=== PATIENT | male | born 1950 | race Hispanic/Latino ===

== ENCOUNTER → 2018-01-27 | Day surgery (SDC) | payer MEDICARE ==
[2018-01-23 11:44] LABS: BASOPHILS # (AUTO) 0.1 (0.0-0.1); BASOPHILS % 1.1 % (0.0-1.0); EOSINOPHILS # (AUTO) 0.1 (0.0-0.4); EOSINOPHILS % 2.3 % (0.0-6.0); HEMOGLOBIN 13.6 g/dL (14.0-18.0); LYMPHOCYTES # (AUTO) 1.1 (1.0-3.2); LYMPHOCYTES % 19.6 % (18.0-39.1); MEAN CORPUSCULAR HEMOGLOBIN 41.5 pg (28-32); MEAN CORPUSCULAR HGB CONC 36.8 g/dL (31-35); MEAN CORPUSCULAR VOLUME 112.8 fL (81-99); MONOCYTES # (AUTO) 0.6 (0.2-0.8); MONOCYTES % 9.6 % (4.4-11.3); NEUTROPHILS # (AUTO) 3.8 (2.1-6.9); PLATELET COUNT 321 x10e3/uL (140-360); RED BLOOD COUNT 3.28 x10e6/uL (4.3-5.7); RED CELL DISTRIBUTION WIDTH 16.6 % (11.7-14.4)
[~2018-01-27] MED LIST: AMLODIPINE BESY10 MG PO; HYDROXYUREA500 MG PO; LISINOPRIL-HCT1 EAC1 PO; MIDAZOLAM HCL 2 MG/2 ML VIAL ONE; PROPOFOL IV EMULSION 10 MG/ML 50 ML VIAL ONE; TAMSULOSIN HCL0.4 MG PO
--- OUTSIDE RECORDS SUMMARY | 2018-01-27 14:44 | XMS REPORT | Clinical Summary ---
Author Author [facility] Address Unknown Phone Unavailable Care Team Providers Care Panel Raiser Operator Name Role Phone Cali Rodriguez MD PCP Allergies No Known Allergies Current Medications Prescription Sig. Disp. Refills Start End Date Status Date tamsulosin (FLOMAX) 0.4 Take 0.4 mg by mouth Active mg capsule,extended daily. release 24hr lisinopril-hydrochlorothi Take 1 tablet by mouth Active azide daily. (PRINZIDE,ZESTORETIC) 20-25 mg per tablet fenofibrate (LOFIBRA) 160 Take 160 mg by mouth Active MG tablet daily. amLODIPine (NORVASC) 10 Take 10 mg by mouth Active mg tablet daily. azelastine-fluticasone 1 spray by Each Nare Active (DYMISTA) 137-50 route 2 (two) times a mcg/spray day. spray,non-aerosol cetirizine (ZyrTEC) 10 MG Take 10 mg by mouth 2 Active tablet (two) times a day. acetaminophen with Take 20.3 mL by mouth Active codeine every 4 (four) hours as (ACETAMINOPHEN-CODEINE) needed. 120 mg-12 mg /5 mL (5 mL) solution aspirin (ECOTRIN) 81 MG Take 81 mg by mouth Active enteric coated tablet daily. atorvastatin (LIPITOR) 80 Take 80 mg by mouth Active MG tablet daily. cyclobenzaprine Take 10 mg by mouth every Active (FLEXERIL) 10 mg tablet 12 (twelve) hours. docusate (COLACE) 50 mg/5 Take 150 mg by mouth Active mL liquid every 12 (twelve) hours. hydroxyurea (HYDREA) 500 Take 2,000 mg by mouth Active mg capsule nightly. melatonin 3 mg tablet Take by mouth nightly as Active needed for sleep. traMADol (ULTRAM) 50 mg Take 50 mg by mouth every Active tablet 6 (six) hours as needed for moderate pain. amoxicillin (AMOXIL) 875 Take 875 mg by mouth 2 10/31/19 Discontin MG tablet (two) times a day. 18 ued lisinopril Take 20 mg by mouth every 10/31/19 Discontin (PRINIVIL,ZESTRIL) 20 mg 12 (twelve) hours. 18 ued tablet dextran 70-hypromellose Administer 1 drop to both 6 mL 0 10/31/19 11/30/19 (ARTIFICIAL TEARS) eyes 4 (four) times a day 18 18 0.1-0.3 % drops for 30 days. 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 Rosaura Alvarez MD of left vertebral artery Carlin Morel (Primary Dx); MD Patrice Cerebrovascular accident (CVA), unspecified mechanism; Dizziness; Acute encephalopathy 10/01/2017 Documentation General Internal Medicine Kaila Crawford NP 09/29/2017 Procedure Pass Surgical Intensive Care 09/25/2017 [facility] Surgical Intensive Care Devi Shaw Cerebrovascular accident - Encounter Bryan Cano MD (CVA) due to thrombosis 10/01/2017 Cali Rodriguez of left vertebral artery (Primary Dx); Som Campos MD Dizziness; Dysmetria; Acute encephalopathy 09/25/2017 Procedure Pass Surgical Intensive Care 09/25/2017 Procedure Pass Surgical Intensive Care 09/25/2017 Procedure Pass Surgical Intensive Care after 01/26/2017 Social History Tobacco Use Types Packs/Day Years Used Date Never Smoker Smokeless Tobacco: Never Used Alcohol Use Drinks/Week oz/Week Comments No Sex Assigned at Date Recorded Not on file Last Filed Vital Signs Vital Sign Reading Time Taken Blood Pressure 132/84 10/30/2017 7:06 AM CDT Pulse 84 10/30/2017 7:06 AM CDT Temperature 36.1 C (97 F) 10/30/2017 7:06 AM CDT Respiratory Rate 17 10/30/2017 7:06 AM CDT Oxygen Saturation 95% 10/30/2017 7:06 AM CDT Inhaled Oxygen - - Concentration Weight 88.2 kg (194 lb 6.4 oz) 10/10/2017 7:42 PM CDT Height 167.6 cm (5' 6") 10/10/2017 7:42 PM CDT Body Mass Index 31.38 10/10/2017 7:42 PM CDT Plan of Treatment Health Maintenance Due Date Last Done Comments COLON CANCER SCREENING 2001 SHINGRIX VACCINE (#1) 2001 ZOSTER VACCINE 2011 PNEUMOCOCCAL 2016 POLYSACCHARIDE VACCINE AGE 65 AND OVER PNEUMOCOCCAL-13 2016 INFLUENZA VACCINE 11/12/2017 Implants Implanted Type Area Action Installer Device Expiration Model / Identifier Date Serial / Lot Device Vasclr Clsr Baln Cath 10ml Cardiovasc N/A: N/A ACCESS CLOSURE [id number] / Lkng Syr 5fr Will Mynxgrip - [employer] / [id number] Implants Implanted: 09/30/2017 (Quantity not on file) Catheter Angiography Diag [facility] Surgical N/A: N/A [facility] [place] [facility] [id number] Torque Staffing Manager Ii 5fr 100cm - Implants; INTERVENTION / [id number] Expanders; VASCULAR AUGIE / Implanted: 09/30/2017 (Quantity not Extenders; on file) Surgical Wires Procedures Procedure Name Priority Date/Time Associated Diagnosis Comments POC GLUCOSE Routine 10/30/2017 Results for this 3:58 PM CDT procedure are in the results section. POC GLUCOSE Routine 10/30/2017 Results for this 10:42 AM CDT procedure are in the results section. POC GLUCOSE Routine 10/30/2017 Results for this 6:18 AM CDT procedure are in the results section. HC COMPLETE BLD COUNT Routine 10/30/2017 Results for this W/AUTO DIFF 4:49 AM CDT procedure are in the results section. POC GLUCOSE Routine 10/29/2017 Results for this 9:16 PM CDT procedure are in the results section. POC GLUCOSE Routine 10/29/2017 Results for this 3:55 PM CDT procedure are in the results section. POC GLUCOSE Routine 10/29/2017 Results for this 12:23 PM CDT procedure are in the results section. POC GLUCOSE Routine 10/29/2017 Results for this 6:33 AM CDT procedure are in the results section. HC COMPLETE BLD COUNT Routine 10/29/2017 Results for this W/AUTO DIFF 4:50 AM CDT procedure are in the results section. POC GLUCOSE Routine 10/28/2017 Results for this 4:28 PM CDT procedure are in the results section. POC GLUCOSE Routine 10/28/2017 Results for this 11:20 AM CDT procedure are in the results section. POC GLUCOSE Routine 10/28/2017 Results for this 6:15 AM CDT procedure are in the results section. HC COMPLETE BLD COUNT Routine 10/28/2017 Results for this W/AUTO DIFF 4:30 AM CDT procedure are in the results section. POC GLUCOSE Routine 10/27/2017 Results for this 7:55 PM CDT procedure are in the results section. POC GLUCOSE Routine 10/27/2017 Results for this 4:02 PM CDT procedure are in the results section. POC GLUCOSE Routine 10/27/2017 Results for this 11:09 AM CDT procedure are in the results section. HC COMPLETE BLD COUNT STAT 10/27/2017 Results for this W/AUTO DIFF 9:04 AM CDT procedure are in the results section. POC GLUCOSE Routine 10/27/2017 Results for this 5:50 AM CDT procedure are in the results section. POC GLUCOSE Routine 10/26/2017 Results for this 7:52 PM CDT procedure are in the results section. POC GLUCOSE Routine 10/26/2017 Results for this 4:12 PM CDT procedure are in the results section. POC GLUCOSE Routine 10/26/2017 Results for this 10:54 AM CDT procedure are in the results section. POC GLUCOSE Routine 10/26/2017 Results for this 6:33 AM CDT procedure are in the results section. POC GLUCOSE Routine 10/25/2017 Results for this 8:39 PM CDT procedure are in the results section. POC GLUCOSE Routine 10/25/2017 Results for this 3:59 PM CDT procedure are in the results section. POC GLUCOSE Routine 10/25/2017 Results for this 10:36 AM CDT procedure are in the results section. POC GLUCOSE Routine 10/25/2017 Results for this 6:27 AM CDT procedure are in the results section. MANUAL DIFFERENTIAL Routine 10/25/2017 Results for this 4:53 AM CDT procedure are in the results section. CBC WITH PLATELET AND Routine 10/25/2017 Results for this DIFFERENTIAL 4:53 AM CDT procedure are in the results section. POC GLUCOSE Routine 10/24/2017 Results for this 7:25 PM CDT procedure are in the results section. POC GLUCOSE Routine 10/24/2017 Results for this 4:06 PM CDT procedure are in the results section. POC GLUCOSE Routine 10/24/2017 Results for this 11:03 AM CDT procedure are in the results section. POC GLUCOSE Routine 10/24/2017 Results for this 6:22 AM CDT procedure are in the results section. MANUAL DIFFERENTIAL Routine 10/24/2017 Results for this 5:14 AM CDT procedure are in the results section. CBC WITH PLATELET AND Routine 10/24/2017 Results for this DIFFERENTIAL 5:14 AM CDT procedure are in the results section. POC GLUCOSE Routine 10/23/2017 Results for this 4:19 PM CDT procedure are in the results section. POC GLUCOSE Routine 10/23/2017 Results for this 11:17 AM CDT procedure are in the results section. POC GLUCOSE Routine 10/23/2017 Results for this 7:31 AM CDT procedure are in the results section. MANUAL DIFFERENTIAL Routine 10/23/2017 Results for this 4:17 AM CDT procedure are in the results section. CBC WITH PLATELET AND Routine 10/23/2017 Results for this DIFFERENTIAL 4:17 AM CDT procedure are in the results section. POC GLUCOSE Routine 10/22/2017 Results for this 7:58 PM CDT procedure are in the results section. MANUAL DIFFERENTIAL Routine 10/22/2017 Results for this 5:03 AM CDT procedure are in the results section. CBC WITH PLATELET AND Routine 10/22/2017 Results for this DIFFERENTIAL 5:03 AM CDT procedure are in the results section. MANUAL DIFFERENTIAL Routine 10/21/2017 Results for this 4:58 AM CDT procedure are in the results section. CBC WITH PLATELET AND Routine 10/21/2017 Results for this DIFFERENTIAL 4:58 AM CDT procedure are in the results section. MANUAL DIFFERENTIAL Routine 10/20/2017 Results for this 5:05 AM CDT procedure are in the results section. CBC WITH PLATELET AND Routine 10/20/2017 Results for this DIFFERENTIAL 5:05 AM CDT procedure are in the results section. MANUAL DIFFERENTIAL Routine 10/19/2017 Results for this 6:45 AM CDT procedure are in the results section. CBC WITH PLATELET AND Routine 10/19/2017 Results for this DIFFERENTIAL 6:45 AM CDT procedure are in the results section. ZZESTIMATED GFR Routine 10/18/2017 Results for this 4:30 AM CDT procedure are in the results section. BASIC METABOLIC PANEL Routine 10/18/2017 Results for this 4:30 AM CDT procedure are in the results section. CBC WITH PLATELET AND Routine 10/18/2017 Results for this DIFFERENTIAL 4:30 AM CDT procedure are in the results section. MANUAL DIFFERENTIAL Routine 10/17/2017 Results for this 4:36 AM CDT procedure are in the results section. CBC WITH PLATELET AND Routine 10/17/2017 Results for this DIFFERENTIAL 4:36 AM CDT procedure are in the results section. FL MODIFIED BARIUM Routine 10/16/2017 Results for this SWALLOW 9:43 AM CDT procedure are in the results section. MANUAL DIFFERENTIAL Routine 10/16/2017 Results for this 4:30 AM CDT procedure are in the results section. CBC WITH PLATELET AND Routine 10/16/2017 Results for this DIFFERENTIAL 4:30 AM CDT procedure are in the results section. MANUAL DIFFERENTIAL Routine 10/14/2017 Results for this 5:09 AM CDT procedure are in the results section. CBC WITH PLATELET AND Routine 10/14/2017 Results for this DIFFERENTIAL 5:09 AM CDT procedure are in the results section. XR CHEST 1 VW PORTABLE Routine 10/13/2017 Results for this 2:51 PM CDT procedure are in the results section. MANUAL DIFFERENTIAL Routine 10/13/2017 Results for this 4:50 AM CDT procedure are in the results section. ZZESTIMATED GFR Routine 10/13/2017 Results for this 4:50 AM CDT procedure are in the results section. CBC WITH PLATELET AND Routine 10/13/2017 Results for this DIFFERENTIAL 4:50 AM CDT procedure are in the results section. BASIC METABOLIC PANEL Routine 10/13/2017 Results for this 4:50 AM CDT procedure are in the results section. ZZESTIMATED GFR Routine 10/12/2017 Results for this 5:03 AM CDT procedure are in the results section. HC COMPLETE BLD COUNT Routine 10/12/2017 Results for this W/AUTO DIFF 5:03 AM CDT procedure are in the results section. BASIC METABOLIC PANEL Routine 10/12/2017 Results for this 5:03 AM CDT procedure are in the results section. POC GLUCOSE Routine 10/11/2017 Results for this 4:29 PM CDT procedure are in the results section. URINALYSIS, AUTOMATED Routine 10/11/2017 Results for this WITH MICROSCOPY 3:00 PM CDT procedure are in the results section. MANUAL DIFFERENTIAL Routine 10/11/2017 Results for this 5:00 AM CDT procedure are in the results section. ZZESTIMATED GFR Routine 10/11/2017 Results for this 5:00 AM CDT procedure are in the results section. COMPREHENSIVE METABOLIC Routine 10/11/2017 Results for this PANEL 5:00 AM CDT procedure are in the results section. CBC WITH PLATELET AND Routine 10/11/2017 Results for this DIFFERENTIAL 5:00 AM CDT procedure are in the results section. INTUBATION Routine 09/30/2017 Acute encephalopathy Results for this 11:14 PM CDT Cerebrovascular accident procedure are in the (CVA) due to thrombosis results section. of left vertebral artery ZZESTIMATED GFR Timed 09/30/2017 Results for this 10:35 PM CDT procedure are in the results section. BASIC METABOLIC PANEL Timed 09/30/2017 Results for this 10:35 PM CDT procedure are in the results section. ANTI XA, UNFRACTIONATED Timed 09/30/2017 Results for this 10:35 PM CDT procedure are in the results section. AK INSERT NON-TUNNEL CV Routine 09/30/2017 Cerebrovascular accident Results for this CATH 10:32 PM CDT (CVA) due to thrombosis procedure are in the of left vertebral artery results section. XR CHEST 1 VW PORTABLE STAT 09/30/2017 Results for this 10:29 PM CDT procedure are in the results section. ZZESTIMATED GFR Timed 09/30/2017 Results for this 8:03 PM CDT procedure are in the results section. BASIC METABOLIC PANEL Timed 09/30/2017 Results for this 8:03 PM CDT procedure are in the results section. OSMOLALITY, SERUM Routine 09/30/2017 Results for this 8:03 PM CDT procedure are in the results section. IR PLACE CATHETER Routine 09/30/2017 Results for this SUBCLAVIAN ARTERY LEFT 3:23 PM CDT procedure are in the results section. IR PLACE CATHETER Routine 09/30/2017 Results for this CAROTID/INOMINATE 3:23 PM CDT procedure are in the ARTERIOGRAM INTRACRAINAL results section. CAROTID RIGHT ANTI XA, UNFRACTIONATED Timed 09/30/2017 Results for this 12:20 PM CDT procedure are in the results section. THERAPEUTIC PHLEBOTOMY Routine 09/30/2017 Results for this 10:27 AM CDT procedure are in the results section. CT HEAD WO CONTRAST Routine 09/30/2017 Results for this 8:46 AM CDT procedure are in the results section. ZZESTIMATED GFR Routine 09/30/2017 Results for this 4:44 AM CDT procedure are in the results section. IONIZED CALCIUM Routine 09/30/2017 Results for this 4:44 AM CDT procedure are in the results section. PHOSPHORUS LEVEL Routine 09/30/2017 Results for this 4:44 AM CDT procedure are in the results section. MAGNESIUM LEVEL Routine 09/30/2017 Results for this 4:44 AM CDT procedure are in the results section. COMPREHENSIVE METABOLIC Routine 09/30/2017 Results for this PANEL 4:44 AM CDT procedure are in the results section. ANTI XA, UNFRACTIONATED Timed 09/30/2017 Results for this 4:44 AM CDT procedure are in the results section. ANTI XA, UNFRACTIONATED STAT 09/30/2017 Results for this 2:56 AM CDT procedure are in the results section. CBC HEMOGRAM STAT 09/30/2017 Results for this 2:56 AM CDT procedure are in the results section. PARTIAL THROMBOPLASTIN STAT 09/30/2017 Results for this TIME (PTT) 2:56 AM CDT procedure are in the results section. PROTHROMBIN TIME WITH INR STAT 09/30/2017 Results for this 2:56 AM CDT procedure are in the results section. MRI BRAIN WO CONTRAST STAT 09/30/2017 Results for this 12:50 AM CDT procedure are in the results section. MANUAL DIFFERENTIAL Routine 09/29/2017 Results for this 5:51 AM CDT procedure are in the results section. ANTI XA, UNFRACTIONATED Timed 09/29/2017 Results for this 5:51 AM CDT procedure are in the results section. HC COMPLETE BLD COUNT Routine 09/29/2017 Results for this W/AUTO DIFF 5:51 AM CDT procedure are in the results section. ANTI XA, UNFRACTIONATED STAT 09/28/2017 Results for this 9:48 PM CDT procedure are in the results section. ANTI XA, UNFRACTIONATED Timed 09/28/2017 Results for this 1:34 PM CDT procedure are in the results section. ERYTHROPOIETIN Routine 09/28/2017 Results for this 10:54 AM CDT procedure are in the results section. TAYLOR 2 MUTATION DETECTION Routine 09/28/2017 Results for this BY PCR 10:50 AM CDT procedure are in the results section. ANTI XA, UNFRACTIONATED Timed 09/28/2017 Results for this 9:56 AM CDT procedure are in the results section. MANUAL DIFFERENTIAL Timed 09/28/2017 Results for this 5:12 AM CDT procedure are in the results section. CBC HEMOGRAM Timed 09/28/2017 Results for this 5:12 AM CDT procedure are in the results section. ANTI XA, UNFRACTIONATED Timed 09/28/2017 Results for this 5:12 AM CDT procedure are in the results section. ANTI XA, UNFRACTIONATED Timed 09/27/2017 Results for this 9:26 PM CDT procedure are in the results section. CT HEAD WO CONTRAST STAT 09/27/2017 Results for this 7:58 PM CDT procedure are in the results section. ANTI XA, UNFRACTIONATED Timed 09/27/2017 Results for this 1:31 PM CDT procedure are in the results section. ANTI XA, UNFRACTIONATED Timed 09/27/2017 Results for this 6:16 AM CDT procedure are in the results section. ZZESTIMATED GFR Routine 09/27/2017 Results for this 6:16 AM CDT procedure are in the results section. COMPREHENSIVE METABOLIC Routine 09/27/2017 Results for this PANEL 6:16 AM CDT procedure are in the results section. HC COMPLETE BLD COUNT Routine 09/27/2017 Results for this W/AUTO DIFF 6:16 AM CDT procedure are in the results section. ANTI XA, UNFRACTIONATED Timed 09/26/2017 Results for this 10:46 PM CDT procedure are in the results section. ANTI XA, UNFRACTIONATED Timed 09/26/2017 Results for this 2:23 PM CDT procedure are in the results section. ECHOCARDIOGRAM 2D Routine 09/26/2017 Results for this COMPLETE W MMODE SPECTRAL 1:31 PM CDT procedure are in the COLOR DOPPLER ([id number]) results section. LIPID PANEL Routine 09/26/2017 Results for this 4:35 AM CDT procedure are in the results section. PARTIAL THROMBOPLASTIN STAT 09/26/2017 Results for this TIME (PTT) 4:35 AM CDT procedure are in the results section. ANTI XA, UNFRACTIONATED STAT 09/26/2017 Results for this 4:35 AM CDT procedure are in the results section. PROTHROMBIN TIME WITH INR STAT 09/26/2017 Results for this 4:35 AM CDT procedure are in the results section. TROPONIN Timed 09/26/2017 Results for this 4:35 AM CDT procedure are in the results section. CT ANGIOGRAM HEAD W WO STAT 09/26/2017 Results for this CONTRAST 1:44 AM CDT procedure are in the results section. CT ANGIOGRAM NECK W WO STAT 09/26/2017 Results for this CONTRAST 1:43 AM CDT procedure are in the results section. URINALYSIS SCREEN AND STAT 09/26/2017 Results for this MICROSCOPY, WITH REFLEX 12:15 AM CDT procedure are in the TO CULTURE results section. MRA NECK WO CONTRAST STAT 09/26/2017 Results for this 12:06 AM CDT procedure are in the results section. MRA HEAD WO CONTRAST STAT 09/26/2017 Results for this 12:06 AM CDT procedure are in the results section. MRI BRAIN WO CONTRAST STAT 09/26/2017 Results for this 12:05 AM CDT procedure are in the results section. B NATRIURETIC PEPTIDE STAT 09/26/2017 Results for this 12:03 AM CDT procedure are in the results section. ZZESTIMATED GFR STAT 09/26/2017 Results for this 12:03 AM CDT procedure are in the results section. LACTIC ACID LEVEL STAT 09/26/2017 Results for this 12:03 AM CDT procedure are in the results section. TROPONIN STAT 09/26/2017 Results for this 12:03 AM CDT procedure are in the results section. COMPREHENSIVE METABOLIC STAT 09/26/2017 Results for this PANEL 12:03 AM CDT procedure are in the results section. CBC WITH PLATELET AND STAT 09/26/2017 Results for this DIFFERENTIAL 12:03 AM CDT procedure are in the results section. CT HEAD WO CONTRAST STAT 09/25/2017 Results for this 10:52 PM CDT procedure are in the results section. ECG ED PRELIMINARY Routine 09/25/2017 Results for this INTERPRETATION 10:10 PM CDT procedure are in the results section. AK CRITICAL CARE, E/M Routine 09/25/2017 Results for this 30-74 MINUTES 10:10 PM CDT procedure are in the results section. XR CHEST 1 VW PORTABLE STAT 09/25/2017 Results for this 10:05 PM CDT procedure are in the results section. ECG 12-LEAD STAT 09/25/2017 Results for this 9:51 PM CDT procedure are in the results section. after 01/26/2017 Results * POC glucose (10/30/2017 3:58 PM) Only the most recent of 31 results within the time period is included. POC glucose 115 (H) 65 - 100 mg/dL [facility] [place] Comment: PATHOLOGY AND Meter ID: [id number] GENOMIC MEDICINE Reimbursement Spec: Nicole Miranda Performing Organization Address City/State/Zipcode Phone Number [facility] [address] [place] [address] PATHOLOGY AND GENOMIC MEDICINE * CBC with platelet and differential (10/30/2017 4:49 AM) Only the most recent of 21 results within the time period is included. WBC 3.7 (L) 4.2 - 11.0 k/uL [facility] AND GENOMIC MEDICINE RBC 4.00 (L) 4.04 - 5.86 m/uL [facility] AND GENOMIC MEDICINE HGB 12.4 (L) 13.0 - 17.3 g/dL [facility] GENOMIC MEDICINE HCT 36.8 34.0 - 45.0 % [facility] AND GENOMIC MEDICINE MCV 92.0 80.0 - 98.0 fL [facility] AND GENOMIC MEDICINE MCH 31.0 27.0 - 34.0 pg [facility] AND GENOMIC MEDICINE MCHC 33.7 31.5 - 36.5 g/dL [facility]Y AND GENOMIC MEDICINE RDW - SD 46.5 37.0 - 51.0 fL [facility]OLOGY AND GENOMIC MEDICINE MPV 10.0 7.4 - 10.4 fL [facility] GENOMIC MEDICINE Platelet count 285 150 - 400 k/uL [facility] AND GENOMIC MEDICINE Nucleated RBC 0.00 /100 WBC [facility] AND GENOMIC MEDICINE Neutrophils 44.2 36.0 - 66.0 % [facility] AND GENOMIC MEDICINE Lymphocytes 33.3 24.0 - 44.0 % [facility] AND GENOMIC MEDICINE Monocytes 18.7 (H) 0.0 - 6.0 % [facility] AND GENOMIC MEDICINE Eosinophils 0.8 0.0 - 6.0 % [facility] AND GENOMIC MEDICINE Basophils 1.9 (H) 0.0 - 1.2 % [facility] GENOMIC MEDICINE Immature granulocytes 1.1 (H) 0.0 - 1.0 % [facility] OF PATHOLOGY AND GENOMIC MEDICINE Specimen Blood Performing Organization Address City/[facility]/Zipcode Phone Number [facility] [address] [place] [address] PATHOLOGY AND GENOMIC MEDICINE * Manual differential (10/25/2017 4:53 AM) Only the most recent of 14 results within the time period is included. Manual differential PERFORMED [facility] AND GENOMIC MEDICINE Neutrophils 72.0 (H) 36.0 - 66.0 % [facility] AND GENOMIC MEDICINE Lymphocytes 19.0 (L) 24.0 - 44.0 % [facility] AND GENOMIC MEDICINE Monocytes 3.0 0.0 - 6.0 % [facility] AND GENOMIC MEDICINE Eosinophils 1.0 0.0 - 6.0 % [facility] AND GENOMIC MEDICINE Basophils 3.0 (H) 0.0 - 1.2 % [facility] AND GENOMIC MEDICINE Metamyelocytes 0 0 - 1 % [facility] AND [facility]OMIC MEDICINE Promyelocytes 0 0 - 1 % [facility] GENOMIC MEDICINE Reactive lymphocytes 2.0 [facility] AND GENOMIC MEDICINE Platelet slide review Eliana adequate [facility] AND GENOMIC MEDICINE Hypersegmented [facility] neutrophils PATHOLOGY AND GENOMIC MEDICINE Anisocytosis 1+ [facility]OLOGY AND GENOMIC MEDICINE Polychromasia 1+ [facility] PATHOLOGY AND GENOMIC MEDICINE Basophilic stippling Occasional [facility] PATHOLOGY AND GENOMIC MEDICINE Enlarged platelets 1+ [facility] PATHOLOGY AND GENOMIC MEDICINE Performing Organization Address City/State/Zipcode Phone Number [facility] [address] [place] [address] PATHOLOGY AND GENOMIC MEDICINE * Estimated GFR (10/18/2017 4:30 AM) Only the most recent of 9 results within the time period is included. GFR Non Af Amer 43 (A) mL/min/1.73 m2 [facility] PATHOLOGY AND GENOMIC MEDICINE GFR Af Amer 53 (A) mL/min/1.73 m2 [facility] OF Comment: PATHOLOGY AND Chronic kidney disease: <60 GENOMIC MEDICINE mL/min/1.73m2 Kidney failure: <15 mL/min/1.73m2 The estimated GFR is calculated from the IDMS-traceable Modification of Diet in Renal Disease Equation. The accuracy of the calculation is poor when the creatinine is normal. Calculated values >90 mL/min/1.73m2 are not reported. This equation has not been validated in children (<18 years), women, the elderly (>70 years), or ethnic groups other than Caucasians and Americans. Specimen Plasma specimen Performing Organization Address City/[facility] Phone Number [place] [phone] [place] [address] PATHOLOGY AND [employer] [facility] * Basic metabolic panel (10/18/2017 4:30 AM) Only the most recent of 5 results within the time period is included. Sodium 139 135 - 150 mEq/L [facility] OF PATHOLOGY AND GENOMIC MEDICINE Potassium 4.9 3.5 - 5.0 mEq/L [facility] OF PATHOLOGY AND GENOMIC MEDICINE Chloride 100 98 - 112 mEq/L [facility] OF PATHOLOGY AND GENOMIC MEDICINE CO2 27 24 - 31 mmol/L [facility] OF PATHOLOGY AND [employer] MEDICINE Anion gap 12@ANIO 7 - 15 mEq/L [facility] OF PATHOLOGY AND GENOMIC MEDICINE BUN 38 (H) 7 - 18 mg/dL [facility] OF PATHOLOGY AND GENOMIC MEDICINE Creatinine 1.60 (H) 0.70 - 1.20 mg/dL [facility] OF PATHOLOGY AND GENOMIC MEDICINE Glucose 91 65 - 100 mg/dL [facility] OF PATHOLOGY AND GENOMIC MEDICINE Calcium 9.1 8.8 - 10.2 mg/dL [facility] OF PATHOLOGY AND GENOMIC MEDICINE Specimen Plasma specimen Performing Organization Address City/[facility]ode Phone Number [place] [address] [place] [address] PATHOLOGY AND [employer] [facility] * FL Modified Barium Swallow (10/16/2017 9:43 AM) Narrative Performed At EXAMINATION:[place] MODIFIED BARIUM SWALLOW [facility] CLINICAL HISTORY:Dysphagia COMPARISON:None. Fluoroscopy time: 1.5 minute FINDINGS: The patient swallowed varying consistencies of barium under direct lateral fluoroscopic evaluation. The study was performed in conjunction with speech pathology. IMPRESSION: Normal study. The patient swallowed each consistency without evidence of laryngeal penetration or aspiration. Please refer to Speech Pathology report for further details. [facility]-[id number] Procedure Note Hm Interface, Radiology Results Incoming - 10/16/2017 2:47 PM CDT EXAMINATION: [place] MODIFIED BARIUM SWALLOW CLINICAL HISTORY: Dysphagia COMPARISON: None. Fluoroscopy time: 1.5 minute FINDINGS: The patient swallowed varying consistencies of barium under direct lateral fluoroscopic evaluation. The study was performed in conjunction with speech pathology. IMPRESSION: Normal study. The patient swallowed each consistency without evidence of laryngeal penetration or aspiration. Please refer to Speech Pathology report for further details. [facility]-[id number] Performing Organization Address [facility] Phone Number [facility] [address] [place] [address] * XR Chest 1 Vw Portable (10/13/2017 2:51 PM) Only the most recent of 3 results within the time period is included. Narrative Performed At EXAMINATION:XR CHEST 1 VW PORTABLE [facility] CLINICAL HISTORY:Chest Pain COMPARISON:September 30, 2017 IMPRESSION: Right IJ catheter is no longer present. There is minimal cardiomegaly with central pulmonary vascular congestion and some mild interstitial infiltrate in the mid to lower lung mcdowell bilaterally. [facility]-[id number] Procedure Note Hm Interface, Radiology Results Incoming - 10/13/2017 2:59 PM CDT EXAMINATION: XR CHEST 1 VW PORTABLE CLINICAL HISTORY: Chest Pain COMPARISON: September 30, 2017 IMPRESSION: Right IJ catheter is no longer present. There is minimal cardiomegaly with central pulmonary vascular congestion and some mild interstitial infiltrate in the mid to lower lung mcdowell bilaterally. [facility]-[id number] Performing Organization Address [facility] Phone Number [facility] [address] [place] [address] * Urinalysis, automated with microscopy (10/11/2017 3:00 PM) Color, UA Yellow [facility] OF PATHOLOGY AND GENOMIC MEDICINE Appearance, UA Clear [facility] OF PATHOLOGY AND GENOMIC MEDICINE Specific gravity, UA 1.018 1.001 - 1.035 [facility] OF PATHOLOGY AND GENOMIC MEDICINE pH, UA 5.0 5.0 - 8.5 [facility] OF PATHOLOGY AND GENOMIC MEDICINE Protein, UA Negative Negative [facility] OF PATHOLOGY AND GENOMIC MEDICINE Glucose, UA Negative Negative [facility] OF PATHOLOGY AND GENOMIC MEDICINE Ketones, UA Negative Negative [facility] OF PATHOLOGY AND GENOMIC MEDICINE Bilirubin, UA Negative Negative [facility] OF PATHOLOGY AND GENOMIC MEDICINE Blood, UA Moderate (A) Negative [facility] OF PATHOLOGY AND GENOMIC MEDICINE Nitrite, UA Negative Negative [facility] OF PATHOLOGY AND GENOMIC MEDICINE Urobilinogen, UA Negative <2.0 [facility] OF PATHOLOGY AND GENOMIC MEDICINE Leukocyte esterase, UA Negative Negative [facility] OF PATHOLOGY AND GENOMIC MEDICINE WBC, UA 5 (A) 0 - 1 /HPF [facility] OF PATHOLOGY AND GENOMIC MEDICINE RBC, UA 24 (H) 0 - 5 /HPF [facility] OF PATHOLOGY AND GENOMIC MEDICINE Bacteria, UA None seen None seen [facility] OF PATHOLOGY AND GENOMIC MEDICINE Yeast, UA None seen [facility] OF PATHOLOGY AND GENOMIC MEDICINE Yeast with pseudohyphae, None seen [facility] PATHOLOG[facility] AND GENOMIC MEDICINE Specimen Urine Performing Organization Address City/State/Zipcode Phone Number [place] [phone] [place] [address] PATHOLOGY AND GENOMIC MEDICINE * Comprehensive metabolic panel (10/11/2017 5:00 AM) Only the most recent of 4 results within the time period is included. Sodium 140 135 - 150 mEq/L [facility] OF PATHOLOGY AND GENOMIC MEDICINE Potassium 4.3 3.5 - 5.0 mEq/L [facility] OF PATHOLOGY AND GENOMIC MEDICINE Chloride 104 98 - 112 mEq/L [facility] OF PATHOLOGY AND GENOMIC MEDICINE CO2 25 24 - 31 mmol/L [facility] OF PATHOLOGY AND GENOMIC MEDICINE Anion gap 11@ANIO 7 - 15 mEq/L [facility] OF PATHOLOGY AND GENOMIC MEDICINE BUN 33 (H) 7 - 18 mg/dL [facility] OF PATHOLOGY AND GENOMIC MEDICINE Creatinine 1.00 0.70 - 1.20 mg/dL [facility] OF PATHOLOGY AND GENOMIC MEDICINE Glucose 110 (H) 65 - 100 mg/dL [facility] OF PATHOLOGY AND GENOMIC MEDICINE Calcium 8.8 8.8 - 10.2 mg/dL [facility] OF PATHOLOGY AND GENOMIC MEDICINE Protein 6.6 6.3 - 8.3 g/dL [facility] OF PATHOLOGY AND GENOMIC MEDICINE Albumin 2.7 (L) 3.5 - 5.0 g/dL [facility] OF PATHOLOGY AND GENOMIC MEDICINE A/G ratio 0.7 0.7 - 3.8 [facility] OF PATHOLOGY AND GENOMIC MEDICINE Alkaline phosphatase 83 0 - 129 U/L [facility] OF PATHOLOGY AND GENOMIC MEDICINE AST 32 10 - 50 U/L [facility] OF PATHOLOGY AND GENOMIC MEDICINE ALT 43 5 - 50 U/L [facility] OF PATHOLOGY AND GENOMIC MEDICINE Total bilirubin 0.5 0.2 - 1.2 mg/dL [facility] OF PATHOLOGY AND GENOMIC MEDICINE Specimen Plasma specimen Performing Organization Address City/[facility] Phone Number [facility] OF [address] [place] [address] PATHOLOGY AND GENOMIC MEDICINE * INTUBATION (09/30/2017 11:14 PM) Narrative Performed At Desire Ridley MD 09/30/2017 11:15 PM Intubation Date/Time: 09/30/2017 11:14 PM Performed by: DESIRE RIDLEY Authorized by: DESIRE RIDLEY Consent: Consent obtained:Verbal Consent given by:Healthcare agent Risks discussed:Laryngeal injury, pneumothorax, hypoxia, dental trauma, brain injury, , aspiration and bleeding Alternatives discussed:No treatment, delayed treatment, alternative treatment, observation and referral Snyder protocol: Procedure explained and questions answered to patient or proxy's satisfaction: yes Relevant documents present and verified: yes Test results available and properly labeled: yes Imaging studies available: yes Required blood products, implants, devices, and special equipment available: yes Site/side marked: yes Immediately prior to procedure, a time out was called: yes Patient identity confirmed:Arm band and hospital-assigned identification number Pre-procedure details: Patient status:Altered mental status Mallampati score:1 Pretreatment medications:None Induction:Propofol Paralytics:Vecuronium Procedure details: Preoxygenation:Bag valve mask CPR in progress: no Intubation method:Oral Technique:Direct laryngoscopy Laryngoscope blade:Mac 4 Grade view:1 Difficult airway?: No Tube size (mm):8.0 Tube type:Cuffed Number of attempts:1 Tube visualized through cords: yes Placement assessment: ETT to lip:24 ETT to teeth:23 Tube secured with:ETT crews Breath sounds:Equal Placement verification: chest rise, condensation, CXR verification, direct visualization, equal breath sounds, ETCO2 detector and tube exhalation Post-procedure details: Patient tolerance of procedure:Tolerated well, no immediate complications * Anti Xa, unfractionated (09/30/2017 10:35 PM) Only the most recent of 15 results within the time period is included. Anti Xa, unfractionated <0.10 (L)Comment: Therapeutic 0.30 - 0.70 U/mL [facility] OF Range: 0.30 - 0.70 U/mL PATHOLOGY AND GENOMIC MEDICINE Specimen Blood Performing Organization Address City/[facility]/Zipcode Phone Number [facility] [address] [place] [address] PATHOLOGY AND GENOMIC MEDICINE * CENTRAL LINE (09/30/2017 10:32 PM) Narrative Performed At Kaila Crawford NP 10/01/20172:08 AM Central Line Insertion Performed by: KAILA CRAWFORD Authorized by: KAILA CRAWFORD Consent: Consent obtained:Written Consent given by:Spouse Risks discussed:Arterial puncture, incorrect placement, nerve damage, infection, bleeding and pneumothorax Alternatives discussed:Delayed treatment Snyder protocol: Procedure explained and questions answered to patient or proxy's satisfaction: yes Relevant documents present and verified: yes Test results available and properly labeled: yes Imaging studies available: yes Required blood products, implants, devices, and special equipment available: yes Site/side marked: yes Immediately prior to procedure, a time out was called: yes Patient identity confirmed:Provided demographic data, arm band, verbally with patient and hospital-assigned identification number Pre-procedure details: Hand hygiene: Hand hygiene performed prior to insertion Sterile barrier technique: All elements of maximal sterile technique followed Skin preparation:ChloraPrep Skin preparation agent: Skin preparation agent completely dried prior to procedure Anesthesia (see MAR for exact dosages): Anesthesia method:Local infiltration Local anesthetic:Lidocaine 1% w/o epi Procedure details: Catheter type:Triple lumen Catheter size:7 Fr Catheter length (cm):16 Catheter site: internal jugular vein Catheter Site Laterality:Right Patient position:Flat Landmarks identified: yes Ultrasound guidance: yes Sterile ultrasound techniques: Sterile gel and sterile probe covers were used Number of attempts:1 Successful placement: yes Post-procedure details: Post-procedure:Dressing applied Assessment:Blood return through all ports, free fluid flow, no pneumothorax on x-ray and placement verified by x-ray Patient tolerance of procedure:Tolerated well, no immediate complications * Osmolality, serum (09/30/2017 8:03 PM) Osmolality 299 (H) 275 - 295 mOsm/kg [facility] OF PATHOLOGY AND GENOMIC MEDICINE Specimen Blood Performing Organization Address City/[facility]/Zipcode Phone Number [facility] [address] [place] [address] PATHOLOGY AND GENOMIC MEDICINE * IR Place Catheter Subclavian Artery Left (09/30/2017 3:23 PM) Narrative Performed At [facility]BR[facility]IGITAL SUBTRACTION ANGIOGRAPHY (DSA) [facility] RADIATION EXPOSURE: EVANGELINA 388 mGy COMPARISON: CT angiogram of head and neck dated September 26, 2017. 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 TECHNIQUE: The risk and benefits of the procedure were carefully discussed with and explained to the patient. The risks of the procedure include, but are not limited to, infection, hematoma, damage to any catheterized vessel, renal failure, stroke, worsening of the patient's neurological condition and contrast reaction. Informed consent was obtained. The patient was prepared using sterile technique after signed, informed consent was obtained. Maximal sterile barrier technique was implemented. The right common femoral artery was imaged sonographically and was found to be patent and appropriate for percutaneous access.Under real-time sonographic guidance, the vessel was accessed using a 21-gauge needle with real-time visualization of needle entry into the vessel.A sonographic image of the accessed vessel was obtained as permanent documentation.Seldinger technique was used to advance a standard guidewire into the abdominal aorta and to place a 5 Indian vascular sheath into the accessed artery.A 5 Indian pigtail catheter was introduced into the aortic arch and angiogram performed. Over the wire dictated was exchanged for a 5 Indian angle tapered catheter then for a 5 Indian King catheter utilized in the settings of severely tortuous and atherosclerotic type III aortic arch. The following procedure was then performed. Aortic arch injection, chest examination, in [place] projection. Right common carotid artery injection, neck examination, in oblique Selective right internal carotid injection, head examination, in biplane projections. Selective left subclavian artery injection neck examination in oblique projections. Right common femoral artery angiogram in oblique projection. FINDINGS: Aortic arch angiogram demonstrates a type III arch with extremely tortuous supra aortic trunk. There is bovine type arch with common origin of the left common carotid and brachiocephalic trunk. No hemodynamically significant stenosis identified. The right common carotid injection neck examination demonstrate moderate atherosclerotic changes at the right carotid bifurcations resulting in approximately 30-40% narrowing at the carotid bifurcation. The Right internal carotid injection head examination demonstrate normal antegrade flow into the intracranial circulation without evidence of focal stenosis, aneurysms or arteriovenous formations.The venous phase is within normal limits. Left subclavian artery angiogram demonstrates slowing of flow within the left vertebral. However, V1, V2 and maximal V3 segments appears widely patent without evidence of dissection. There were no complications during the procedure. At the end of the procedure the femoral sheath was removed and hemostasis was obtained using manual compression and 5 Fr. Mynxdevice. The patient was transferred to PACU without changes in the neurological status. Anesthesia Type: Local anesthesia using 1% lidocaine. No conscious sedation given. COMPLICATIONS: None. ESTIMATED BLOOD LOSS: < 5 mL IMPRESSION: Study limited due to patient motion during the study and extremely tortuous supra aortic trunks. 1. The left vertebral artery (V1-V3) appears patent without evidence of dissection. However, the left vertebral demonstrates slowing/sluggish flow within distal V2 segment presumably to distal occlusion. 2. Atherosclerotic changes at the right carotid bifurcations resulting in approximately 30-40% stenosis at the right carotid bulb. 3. Type III aortic arch. Bovine arch. [id number] Procedure Note Hm Interface, Radiology Results Incoming - 10/01/2017 8:44 AM CDT CEREBRAL DIGITAL SUBTRACTION ANGIOGRAPHY (DSA) RADI[facility] EXPOSURE: EVANGELINA 388 mGy COMPARISON: CT angiogram of head and neck dated September 26, 2017. 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 TECHNIQUE: The risk and benefits of the procedure were carefully discussed with and explained to the patient. The risks of the procedure include, but are not limited to, infection, hematoma, damage to any catheterized vessel, renal failure, stroke, worsening of the patient's neurological condition and contrast reaction. Informed consent was obtained. The patient was prepared using sterile technique after signed, informed consent was obtained. Maximal sterile barrier technique was implemented. The right common femoral artery was imaged sonographically and was found to be patent and appropriate for percutaneous access. Under real-time sonographic guidance, the vessel was accessed using a 21-gauge needle with real-time visualization of needle entry into the vessel. A sonographic image of the accessed vessel was obtained as permanent documentation. Seldinger technique was used to advance a standard guidewire into the abdominal aorta and to place a 5 Indian vascular sheath into the accessed artery. A 5 Indian pigtail catheter was introduced into the aortic arch and angiogram performed. Over the wire dictated was exchanged for a 5 Indian angle tapered catheter then for a 5 Indian King catheter utilized in the settings of severely tortuous and atherosclerotic type III aortic arch. The following procedure was then performed. Aortic arch injection, chest examination, in [place] projection. Right common carotid artery injection, neck examination, in oblique Selective right internal carotid injection, head examination, in biplane projections. Selective left subclavian artery injection neck examination in oblique projections. Right common femoral artery angiogram in oblique projection. FINDINGS: Aortic arch angiogram demonstrates a type III arch with extremely tortuous supra aortic trunk. There is bovine type arch with common origin of the left common carotid and brachiocephalic trunk. No hemodynamically significant stenosis identified. The right common carotid injection neck examination demonstrate moderate atherosclerotic changes at the right carotid bifurcations resulting in approximately 30-40% narrowing at the carotid bifurcation. The Right internal carotid injection head examination demonstrate normal antegrade flow into the intracranial circulation without evidence of focal stenosis, aneurysms or arteriovenous formations. The venous phase is within normal limits. Left subclavian artery angiogram demonstrates slowing of flow within the left vertebral. However, V1, V2 and maximal V3 segments appears widely patent without evidence of dissection. There were no complications during the procedure. At the end of the procedure the femoral sheath was removed and hemostasis was obtained using manual compression and 5 Fr. Mynx device. The patient was transferred to PACU without changes in the neurological status. Anesthesia Type: Local anesthesia using 1% lidocaine. No conscious sedation given. COMPLICATIONS: None. ESTIMATED BLOOD LOSS: < 5 mL IMPRESSION: Study limited due to patient motion during the study and extremely tortuous supra aortic trunks. 1. The left vertebral artery (V1-V3) appears patent without evidence of dissection. However, the left vertebral demonstrates slowing/sluggish flow within distal V2 segment presumably to distal occlusion. 2. Atherosclerotic changes at the right carotid bifurcations resulting in approximately 30-40% stenosis at the right carotid bulb. 3. Type III aortic arch. Bovine arch. [id number] Performing Organization Address City/State/Zipcode Phone Number [facility] [address] [place] [address] * IR Place Catheter Carotid/Inominate Arteriogram ICC Right (09/30/2017 3:23 PM) Narrative Performed At [facility] SUBTRACTION ANGIOGRAPHY (DSA) [facility] RADIATION EXPOSURE: EVANGELINA 388 mGy COMPARISON: CT angiogram of head and neck dated September 26, 2017. 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 TECHNIQUE: The risk and benefits of the procedure were carefully discussed with and explained to the patient. The risks of the procedure include, but are not limited to, infection, hematoma, damage to any catheterized vessel, renal failure, stroke, worsening of the patient's neurological condition and contrast reaction. Informed consent was obtained. The patient was prepared using sterile technique after signed, informed consent was obtained. Maximal sterile barrier technique was implemented. The right common femoral artery was imaged sonographically and was found to be patent and appropriate for percutaneous access.Under real-time sonographic guidance, the vessel was accessed using a 21-gauge needle with real-time visualization of needle entry into the vessel.A sonographic image of the accessed vessel was obtained as permanent documentation.Seldinger technique was used to advance a standard guidewire into the abdominal aorta and to place a 5 Indian vascular sheath into the accessed artery.A 5 Indian pigtail catheter was introduced into the aortic arch and angiogram performed. Over the wire dictated was exchanged for a 5 Indian angle tapered catheter then for a 5 Indian King catheter utilized in the settings of severely tortuous and atherosclerotic type III aortic arch. The following procedure was then performed. Aortic arch injection, chest examination, in [place] projection. Right common carotid artery injection, neck examination, in oblique Selective right internal carotid injection, head examination, in biplane projections. Selective left subclavian artery injection neck examination in oblique projections. Right common femoral artery angiogram in oblique projection. FINDINGS: Aortic arch angiogram demonstrates a type III arch with extremely tortuous supra aortic trunk. There is bovine type arch with common origin of the left common carotid and brachiocephalic trunk. No hemodynamically significant stenosis identified. The right common carotid injection neck examination demonstrate moderate atherosclerotic changes at the right carotid bifurcations resulting in approximately 30-40% narrowing at the carotid bifurcation. The Right internal carotid injection head examination demonstrate normal antegrade flow into the intracranial circulation without evidence of focal stenosis, aneurysms or arteriovenous formations.The venous phase is within normal limits. Left subclavian artery angiogram demonstrates slowing of flow within the left vertebral. However, V1, V2 and maximal V3 segments appears widely patent without evidence of dissection. There were no complications during the procedure. At the end of the procedure the femoral sheath was removed and hemostasis was obtained using manual compression and 5 Fr. Mynxdevice. The patient was transferred to PACU without changes in the neurological status. Anesthesia Type: Local anesthesia using 1% lidocaine. No conscious sedation given. COMPLICATIONS: None. ESTIMATED BLOOD LOSS: < 5 mL IMPRESSION: Study limited due to patient motion during the study and extremely tortuous supra aortic trunks. 1. The left vertebral artery (V1-V3) appears patent without evidence of dissection. However, the left vertebral demonstrates slowing/sluggish flow within distal V2 segment presumably to distal occlusion. 2. Atherosclerotic changes at the right carotid bifurcations resulting in approximately 30-40% stenosis at the right carotid bulb. 3. Type III aortic arch. Bovine arch. [id number] Procedure Note Hm Interface, Radiology Results Incoming - 10/01/2017 8:43 AM CDT CEREBRAL DIGITAL SUBTRACTION ANGIOGRAPHY (DSA) RADIATION EXPOSURE: EVANGELINA 388 mGy COMPARISON: CT angiogram of head and neck dated September 26, 2017. 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 TECHNIQUE: The risk and benefits of the procedure were carefully discussed with and explained to the patient. The risks of the procedure include, but are not limited to, infection, hematoma, damage to any catheterized vessel, renal failure, stroke, worsening of the patient's neurological condition and contrast reaction. Informed consent was obtained. The patient was prepared using sterile technique after signed, informed consent was obtained. Maximal sterile barrier technique was implemented. The right common femoral artery was imaged sonographically and was found to be patent and appropriate for percutaneous access. Under real-time sonographic guidance, the vessel was accessed using a 21-gauge needle with real-time visualization of needle entry into the vessel. A sonographic image of the accessed vessel was obtained as permanent documentation. Seldinger technique was used to advance a standard guidewire into the abdominal aorta and to place a 5 Indian vascular sheath into the accessed artery. A 5 Indian pigtail catheter was introduced into the aortic arch and angiogram performed. Over the wire dictated was exchanged for a 5 Indian angle tapered catheter then for a 5 [place] catheter utilized in the settings of severely tortuous and atherosclerotic type III aortic arch. The following procedure was then performed. Aortic arch injection, chest examination, in [place] projection. Right common carotid artery injection, neck examination, in oblique Selective right internal carotid injection, head examination, in biplane projections. Selective left subclavian artery injection neck examination in oblique projections. Right common femoral artery angiogram in oblique projection. FINDINGS: Aortic arch angiogram demonstrates a type III arch with extremely tortuous supra aortic trunk. There is bovine type arch with common origin of the left common carotid and brachiocephalic trunk. No hemodynamically significant stenosis identified. The right common carotid injection neck examination demonstrate moderate atherosclerotic changes at the right carotid bifurcations resulting in approximately 30-40% narrowing at the carotid bifurcation. The Right internal carotid injection head examination demonstrate normal antegrade flow into the intracranial circulation without evidence of focal stenosis, aneurysms or arteriovenous formations. The venous phase is within normal limits. Left subclavian artery angiogram demonstrates slowing of flow within the left vertebral. However, V1, V2 and maximal V3 segments appears widely patent without evidence of dissection. There were no complications during the procedure. At the end of the procedure the femoral sheath was removed and hemostasis was obtained using manual compression and 5 Fr. Mynx device. The patient was transferred to PACU without changes in the neurological status. Anesthesia Type: Local anesthesia using 1% lidocaine. No conscious sedation given. COMPLICATIONS: None. ESTIMATED BLOOD LOSS: < 5 mL IMPRESSION: Study limited due to patient motion during the study and extremely tortuous supra aortic trunks. 1. The left vertebral artery (V1-V3) appears patent without evidence of dissection. However, the left vertebral demonstrates slowing/sluggish flow within distal V2 segment presumably to distal occlusion. 2. Atherosclerotic changes at the right carotid bifurcations resulting in approximately 30-40% stenosis at the right carotid bulb. 3. Type III aortic arch. Bovine arch. [id number] Performing Organization Address City/[facility] Cent[facility] Phone Number [facility] [address] [place] [address] * Therapeutic phlebotomy (09/30/2017 10:27 AM) Therapeutic phlebotomy DONE [facility] Comment: PATHOLOGY AND Therapeutic Phlebotomy Report: GENOMIC MEDICINE Pre-phlebotomy Hematocrit: 55.2% Pre-phlebotomy Hemoglobin: 18.7 g/dL Pre:B/P:147/84 Pulse:68 Post: B/P:152/83 Pulse:61 Site of Phlebotomy (Right/Left Arm):sharonda Amount Collected: 400 Gold Stamper:sharonda Pathologist Approval: emery forde MD Performing Organization Address City/[facility]/Zipcode Phone Number [facility] [address] [place] [address] PATHOLOGY AND GENOMIC MEDICINE * CT Head Wo Contrast (09/30/2017 8:46 AM) Only the most recent of 3 results within the time period is included. Narrative Performed At EXAMINATION: CT HEAD WO CONTRAST [facility] CLINICAL HISTORY: cva. Follow-up COMPARISON:CT brain from September 27, 2017. MRI brain from September 30, 2017. TECHNIQUE: Noncontrast enhanced images of the brain were obtained from the skull base to the vertex. Both soft tissue and bone reconstruction algorithms were performed.CT scans are performed using radiation dose reduction techniques. Technical factors are evaluated and adjusted to ensure appropriate moderation of exposure. Automated dose management technology is applied to adjust radiation exposure while achieving a diagnostic quality image. FINDINGS: Artifacts obscure some details. There is a large recent stroke throughout the left cerebellum with edema and mass effect on the adjacent brain and fourth ventricle. The cerebellum protrudes upwards through the tentorial hiatus with mass effect on the medulla, cholo and midbrain. There is no evidence of hydrocephalus. There is no evidence of acute hyperdense hemorrhage. The MRI brain showed a few tiny recent infarcts in the right frontal lobe without mass effect. These areas show mild decreased density on this CT exam. IMPRESSION: Evolving infarcts throughout the left cerebellum. Small recent infarcts in the right frontal lobe seen better on the prior MRI exam. [id number] Procedure Note Interface, Radiology Results Incoming - 09/30/2017 8:54 AM CDT EXAMINATION: CT HEAD WO CONTRAST CLINICAL HISTORY: cva. Follow-up COMPARISON: CT brain from September 27, 2017. MRI brain from September 30, 2017. TECHNIQUE: Noncontrast enhanced images of the brain were obtained from the skull base to the vertex. Both soft tissue and bone reconstruction algorithms were performed. CT scans are performed using radiation dose reduction techniques. Technical factors are evaluated and adjusted to ensure appropriate moderation of exposure. Automated dose management technology is applied to adjust radiation exposure while achieving a diagnostic quality image. FINDINGS: Artifacts obscure some details. There is a large recent stroke throughout the left cerebellum with edema and mass effect on the adjacent brain and fourth ventricle. The cerebellum protrudes upwards through the tentorial hiatus with mass effect on the medulla, cholo and midbrain. There is no evidence of hydrocephalus. There is no evidence of acute hyperdense hemorrhage. The MRI brain showed a few tiny recent infarcts in the right frontal lobe without mass effect. These areas show mild decreased density on this CT exam. IMPRESSION: Evolving infarcts throughout the left cerebellum. Small recent infarcts in the right frontal lobe seen better on the prior MRI exam. [facility]-[id number] Performing Organization Address City/State/Zipcode Phone Number [facility] [address] [place] [address] * Phosphorus level (09/30/2017 4:44 AM) Phosphorus 4.0 2.5 - 4.5 mg/dL [facility]Y AND GENOMIC MEDICINE Specimen Plasma specimen Performing Organization Address City/[facility] Cent[facility]ode Phone Number [facility] [place] [address] PATHOLOGY AND GENOMIC MEDICINE * Magnesium level (09/30/2017 4:44 AM) Magnesium 2.00 1.60 - 2.40 mg/dL [facility] PATHOLOGY AND GENOMIC MEDICINE Specimen Plasma specimen Performing Organization Address [facility] Phone Number [facility] [place] [address] PATHOLOGY AND GENOMIC MEDICINE * Ionized calcium (09/30/2017 4:44 AM) pH 7.33 [facility]OLOGY AND GENOMIC MEDICINE Ionized calcium 1.16 1.11 - 1.32 mmol/L [facility] PATHOLOGY AND GENOMIC MEDICINE Specimen Plasma specimen Performing Organization Address [facility] Phone Number [facility] [place] [address] PATHOLOGY AND GENOMIC [facility] * Partial thromboplastin time, activated (09/30/2017 2:56 AM) Only the most recent of 2 results within the time period is included. PTT 31.9 23.0 - 36.0 sec [facility] Comment: PATHOLOGY AND PTT therapeutic range for [facility] unfractionated heparin is 61.0-112.0 seconds which corresponds to Anti-Xa 0.3-0.7 U/ml. Note:Change in Panic Value The PTT Panic Value is changing from 110 sec. to 100 sec. due to new instrumentation and reagents. Correlation studies have been performed to validate this result. Specimen Blood Performing Organization Address [facility] Centercode Phone Number [facility] [place] [address] PATHOLOGY AND GENOMIC [facility] * Prothrombin time with INR (09/30/2017 2:56 AM) Only the most recent of 2 results within the time period is included. Prothrombin time 13.2 12.0 - 15.0 sec [facility] PATHOLOGY AND GENOMIC MEDICINE INR 0.99 0.92 - 1.12 [facility] Comment: PATHOLOGY AND For patients on anticoagulant GENOMIC MEDICINE therapy, reference ranges below: Indication: INR Value Treatment of Venous Thrombosis, 2.0-3.0 pulmonary emboli, or prophylaxis of a venous thrombosis, or systemic emboli. High dose, high risk patients 3.0-4.5 with mechanical valves. NOTE:INR values over 3.0 are sometimes associated with gastrointestinal hemorrhage, especially values over 4.0. Specimen Blood Performing Organization Address City/State/Zipcode Phone Number [place] [phone] [place], [place] [id number] [place] [address] * CBC hemogram (09/30/2017 2:56 AM) Only the most recent of 2 results within the time period is included. WBC 19.1 (H) 4.2 - 11.0 k/uL [facility] OF PATHOLOGY AND GENOMIC MEDICINE RBC 6.37 (H) 4.04 - 5.86 m/uL [facility] PATHOLOGY AND GENOMIC MEDICINE HGB 18.7 (H) 13.0 - 17.3 g/dL [facility] OF PATHOLOGY AND GENOMIC MEDICINE HCT 55.2 (H) 34.0 - 45.0 % [facility] OF PATHOLOGY AND GENOMIC MEDICINE MCV 86.7 80.0 - 98.0 fL [facility] PATHOLOGY AND GENOMIC MEDICINE MCH 29.4 27.0 - 34.0 pg [facility] OF PATHOLOGY AND GENOMIC MEDICINE MCHC 33.9 31.5 - 36.5 g/dL [facility] OF PATHOLOGY AND GENOMIC MEDICINE RDW - SD 43.8 37.0 - 51.0 fL [facility] PATHOLOGY AND GENOMIC MEDICINE MPV 9.9 7.4 - 10.4 fL [facility] PATHOLOGY AND GENOMIC MEDICINE Platelet count 948 (HH) 150 - 400 k/uL [facility] Comment: PATHOLOGY AND Results called to and read [employer] back by Yariel Bradford RN (name/location) at09/30/2017 03:22 (date/time) by AJL. Repeated Plt 968 Nucleated RBC 0.00 /100 WBC [facility] OF PATHOLOGY AND GENOMIC MEDICINE Specimen Blood Performing Organization Address City/State/Zipcode Phone Number [facility] [address] [place] [address] PATHOLOGY AND GENOMIC MEDICINE * MRI Brain Wo Contrast (09/30/2017 12:50 AM) Only the most recent of 2 results within the time period is included. Narrative Performed At EXAMINATION: MRI BRAIN WO CONTRAST [facility] CLINICAL HISTORY: Right sided tingling and numbness COMPARISON:Brain MRI 09/25/2017, head CT 09/27/2017 TECHNIQUE: Multiplanar and multisequence MRI imaging of the brain was obtained without contrast. FINDINGS: Expected evolution of the area of acute ischemia involving the inferior left cerebellar hemisphere corresponding to the PICA territory. There is increased cytotoxic edema resulting in increased effacement of the inferior fourth ventricle. There is no hydrocephalus. No hemorrhagic transformation. In addition, there is a new area of acute ischemia involving the left superior cerebellar hemisphere and vermis, corresponding to the SCA territory. No hemorrhagic transformation. There are punctate foci of restricted diffusion in the right frontal deep white matter which are indeterminate but possibly embolic in etiology. Otherwise, no significant interval changes. Other findings: Loss of the normal T1 and T2 flow void within the right sigmoid sinus and transverse sinus, however appears normal on the sagittal T1 sequence. This most likely represents slow flow. IMPRESSION: 1. Expected evolution of the area of acute ischemia involving the left inferior cerebellar hemisphere which was demonstrated on the 09/25/2017 MRI. However, there is a new acute ischemic insults involving the left superior cerebellar hemisphere and vermis which likely corresponds to the SCA territory. Punctate areas of restricted diffusion in the right frontal lobe are likely embolic. 2. Increasing mass effect related to the left PICA territory insult results in increased effacement of the inferior fourth ventricle. There is no hydrocephalus. No hemorrhagic transformation. Findings were discussed with Stacey SALEH at 09/30/2017 1:12 AM who verbalized understanding. [facility]-[id number] Procedure Note Interface, Radiology Results Incoming - 09/30/2017 1:23 AM CDT EXAMINATION: MRI BRAIN WO CONTRAST CLINICAL HISTORY: Right sided tingling and numbness COMPARISON: Brain MRI 09/25/2017, head CT 09/27/2017 TECHNIQUE: Multiplanar and multisequence MRI imaging of the brain was obtained without contrast. FINDINGS: Expected evolution of the area of acute ischemia involving the inferior left cerebellar hemisphere corresponding to the PICA territory. There is increased cytotoxic edema resulting in increased effacement of the inferior fourth ventricle. There is no hydrocephalus. No hemorrhagic transformation. In addition, there is a new area of acute ischemia involving the left superior cerebellar hemisphere and vermis, corresponding to the SCA territory. No hemorrhagic transformation. There are punctate foci of restricted diffusion in the right frontal deep white matter which are indeterminate but possibly embolic in etiology. Otherwise, no significant interval changes. Other findings: Loss of the normal T1 and T2 flow void within the right sigmoid sinus and transverse sinus, however appears normal on the sagittal T1 sequence. This most likely represents slow flow. IMPRESSION: 1. Expected evolution of the area of acute ischemia involving the left inferior cerebellar hemisphere which was demonstrated on the 09/25/2017 MRI. However, there is a new acute ischemic insults involving the left superior cerebellar hemisphere and vermis which likely corresponds to the SCA territory. Punctate areas of restricted diffusion in the right frontal lobe are likely embolic. 2. Increasing mass effect related to the left PICA territory insult results in increased effacement of the inferior fourth ventricle. There is no hydrocephalus. No hemorrhagic transformation. Findings were discussed with Stacey SALEH at 09/30/2017 1:12 AM who verbalized understanding. [facility]-[id number] Performing Organization Address [facility] Centercode Phone Number [place] [phone] [place] [address] * Erythropoietin (09/28/2017 10:54 AM) Erythropoietin 3.8 2.6 - 18.5 mIU/mL [facility] DEPARTMENT OF PATHOLOGY AND GENOMIC MEDICINE Specimen Serum Performing Organization Address City/[facility] Centercode Phone Number [address] [address] PATHOLOGY AND GENOMIC MEDICINE * TAYLOR 2 mutation detection by PCR (09/28/2017 10:50 AM) TAYLOR-2 mutation ID Detected (A) Not-Detected [facility] DEPARTMENT OF PATHOLOGY AND GENOMIC MEDICINE TAYLOR-2 amplification 18.21 Not-Detected [facility] DEPARTMENT OF PATHOLOGY AND GENOMIC MEDICINE TAYLOR 2 mutation detection, See link below for PDF Lab [facility] DEPARTMENT OF PCR ReportComment: Case Number: PATHOLOGY AND [id number] GENOMIC MEDICINE Specimen Blood Performing Organization Address [facility] Centercola Phone Number [place] [phone] [place] [address] PATHOLOGY AND GENOMIC MEDICINE * Echocardiogram complete w contrast and 3D if needed (09/26/2017 1:31 PM) Ao Root Diameter 3.44 cm [facility] AoV Area, Vmax 3.94 cm2 [facility] AoV Area, VTI 3.66 cm2 [facility] AoV Mean PG 4.76 mmHg [facility] AoV Peak PG 9.49 mmHg [facility] AoV Vmax 1.54 m/s [facility] AoV VTI 0.27 m [facility] IVS,d 1.14 0.6 - 1.2 cm [facility] Left Atrium Dimension 5.48 cm [facility] Anterior LV,d 5.31 cm [facility] LV EF,A2C 50.97 % [facility] LV EF,A4C 69.19 % [facility] LV EF,BP 57.50 % [facility] Andrew Benton,d A2C 7.50 cm [facility] Andrew Benton,d A4C 7.39 cm [facility] Andrew Benton,s A2C 6.51 cm [facility] Andrew Benton,s A4C 5.47 cm [facility] LV,s 3.26 cm [facility] LV SV,A2C 48.80 % [facility] LV SV,A4C 61.88 % [facility] LV Vol,d A2C 95.75 mL [facility] LV Vol,d A4C 89.43 ml [facility] LV Vol,d BP 91.92 ml [facility] LV Vol,s A2C 46.94 mL [facility] LV Vol,s A4C 27.55 ml [facility] LV Vol,s BP 39.07 nl [facility] LVOT Diam,S 2.24 cm [facility] LVOT Vmax 1.54 m/s [facility] LVOT VTI 0.25 m [facility] LVPWD,d 0.99 cm [facility] PV Pk Grad 4.83 mmHg [facility] PV VMAX 1.10 m/s [facility] RVSP (TR) 38.09 mmHg [facility] TR Vpeak 2.65 mm/s [facility] MV E A ratio 0.79 mmHg [facility] TR pk grad 28.09 mmHg [facility] E wave decelartion time 284.34 msec [facility] MV Peak A Kalyan 0.63 m/s [facility] MV Peak E Kalyan 0.49 m/s [facility] AV LVOT peak gradient 9.53 mmHg [facility] Ascending aorta 3.74 cm [facility] RVSP 38.09 mmHg [facility] Ao Root Diameter 3.44 cm [facility] LV SYS VOL 42.88 ml [facility] LV GALVIN VOL 135.90 ml [facility] LA area s A4C 28.42 cm2 [facility] LV SV Teich 2D 93.03 ml [facility] LVOT CO 6.49 l/min [facility] LVOT HR for LVOT CO 65.28 bpm [facility] AoV Vmn 1.04 [facility] IVS s 2D 1.67 [facility] LVOT Vmn 0.86 [facility] LVOT mean grad 3.61 mmHg [facility] LVPW s PLAX 1.68 cm [facility] MV Decel slope 1.73 m/s2 [facility] LA Vol MOD A4C 93.59 ml [facility] Velocity Ratio (V1/V2) 1.00 m/s [facility] EF 68.45 % [facility] E/A ratio 0.78 [facility] LVOT area 3.94 cm2 [facility] BSA 2.1 m2 [facility] LV Systolic Volume Index 22.35 mL/m2 [facility] LV Diastolic Volume Index 45.60 mL/m2 [facility] Narrative Performed At [facility] The left ventricle chamber size is normal. There is mild left ventricular concentric hypertrophy. Left atrium size is moderately dilated. Right atrium size mildly dilated. No pericardial effusion Performing Organization Address City/[facility] Centercode Phone Number [facility] [address] [place] [address] * Troponin (09/26/2017 4:35 AM) Only the most recent of 2 results within the time period is included. Troponin <0.01 0.00 - 0.60 ng/mL [facility] Comment: PATHOLOGY AND 0.11 - 1.49 GENOMIC MEDICINE ng/mlMay indicate increased risk of acute coronary syndrome. >=1.5 ng/ml Consistent with acute myocardial infarction. The diagnostic value of a single normal or non-diagnostic result is questionable.Serial samples at 2-6 hour intervals are required to rule out acute myocardial injury. Specimen Plasma specimen Performing Organization Address City/[facility] Centercode Phone Number [facility] [address] [place] [address] PATHOLOGY AND GENOMIC MEDICINE * Lipid panel (09/26/2017 4:35 AM) Cholesterol 153 120 - 200 mg/dL [facility]OLOGY AND GENOMIC MEDICINE Triglycerides 186 (H) 50 - 150 mg/dL [facility] OF PATHOLOGY AND GENOMIC MEDICINE HDL cholesterol 35 (L) 40 - 60 mg/dL [facility] OF PATHOLOGY AND GENOMIC MEDICINE LDL cholesterol 95Comment: Result obtained by 0 - 99 mg/dL [facility] direct LDL measurement PATHOLOGY AND GENOMIC MEDICINE Lipid panel See below [facility] interpretation Comment: PATHOLOGY AND Total Cholesterol GENOMIC MEDICINE (mg/dL) LDL Cholesterol (mg/dL) <200 Desirable <100 Optimal 200-239Borderline -[id number] or above optimal >=240High 130-159Borderline- high 160-189High >=190Very high HDL Cholesterol (mg/dL) Triglycerides (mg/dL) <40Low <150 Normal >=60 High 150-199Borderline- high 200-499High >=500Very high Risk Catergories that modify LDL goals. Risk Catergories LDL goal (mg/dL) CHD and CHD risk equivalent <100 (10-year risk >20%) Multiple (2+) risk factors <130 (10-year risk=<20%) 0-1 risk factors <160 (<10-year risk) Defining levels of lipids in metabolic syndrome Triglycerides >=150 mg/dL HDL Cholesterol Men <40 mg/dL Women <50 mg/dL Non-HDL cholesterol is a second target for therapy in persons with high triglycerides (>=200 mg/dL) Specimen Plasma specimen Performing Organization Address City/State/Zipcode Phone Number [facility] [address] [place] [address] PATHOLOGY AND GENOMIC MEDICINE * CTA Head W Wo Contrast (09/26/2017 1:44 AM) Narrative Performed At EXAM: CT ANGIOGRAM HEAD W WO CONTRAST HM RADIANT CLINICAL HISTORY: eval for VBI TECHNIQUE:Imaging of the intracranial circulation was obtained from the skull base to the vertex during the arterial phase of enhancement. Postprocessing was performed with MIP multiplanar and 3D reconstructed images. CT scans are performed using radiation dose reduction techniques. Technical factors are evaluated and adjusted to ensure appropriate moderation of exposure. Automated dose management technology is applied to adjust radiation exposure while achieving a diagnostic quality image. COMPARISON:CT brain, 09/25/2017; MRA head, 09/25/2017 FINDINGS: Note is again made of occlusion of the left vertebral artery at the distal V2 segment/origin of the V3 segment with minimal/mild reconstitution of flow at the left V4 segment. The right vertebral artery is patent. The vertebral basilar confluence, basilar artery, cerebellar arteries, and posterior cerebral arteries are patent. The bilateral internal carotid arteries, middle cerebral arteries, and anterior cerebral arteries are patent. The major dural sinuses are opacified normally. 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 [facility]-[id number] Procedure Note Interface, Radiology Results Incoming - 09/26/2017 1:55 AM CDT EXAM: CT ANGIOGRAM HEAD W WO CONTRAST CLINICAL HISTORY: eval for VBI TECHNIQUE: Imaging of the intracranial circulation was obtained from the skull base to the vertex during the arterial phase of enhancement. Postprocessing was performed with MIP multiplanar and 3D reconstructed images. CT scans are performed using radiation dose reduction techniques. Technical factors are evaluated and adjusted to ensure appropriate moderation of exposure. Automated dose management technology is applied to adjust radiation exposure while achieving a diagnostic quality image. COMPARISON: CT brain, 09/25/2017; MRA head, 09/25/2017 FINDINGS: Note is again made of occlusion of the left vertebral artery at the distal V2 segment/origin of the V3 segment with minimal/mild reconstitution of flow at the left V4 segment. The right vertebral artery is patent. The vertebral basilar confluence, basilar artery, cerebellar arteries, and posterior cerebral arteries are patent. The bilateral internal carotid arteries, middle cerebral arteries, and anterior cerebral arteries are patent. The major dural sinuses are opacified normally. IMPRESSION: 1. Note is again made of occlusion of the left vertebral artery at the distal V2 segment/origin of the V3 segment with minimal/mild reconstitution of flow at the left V4 segment. [facility]-[id number] Performing Organization Address City/State/Zipcode Phone Number [facility] [address] [place] [address] * CTA Neck W Wo Contrast (09/26/2017 1:43 AM) Narrative Performed At EXAMINATION: CT ANGIOGRAM NECK W WO CONTRAST HM RADIANT CLINICAL HISTORY: eval for dissection in posterior circulation COMPARISON:MRA 09/25/2017. TECHNIQUE: Imaging of the cervical circulation was obtained from the upper thorax to the skull base during the arterial phase of enhancement. Postprocessing was performed with MIP multiplanar and 3D reconstructed images. CT scans are performed using radiation dose reduction techniques. Technical factors are evaluated and adjusted to ensure appropriate moderation of exposure. Automated dose management technology is applied to adjust radiation exposure while achieving a diagnostic quality image. FINDINGS: Left-sided aortic arch with common origin of brachiocephalic trunk and left common carotid artery as a variant. Predominantly noncalcified plaque at proximal right internal carotid artery results in approximately 50% stenosis by NASCET. Partial retropharyngeal course of right cervical ICA. Minimal calcific plaque at the left carotid bifurcation, without significant stenosis of the left cervical ICA. There is minimal contrast opacification of left V1 segment, proximal V2 segment representing high-grade stenosis. Reconstitution within mid V2 segment. There appears to be occlusion of the distal V2 and V3 segments with reconstitution in the V4 segment. The vertebral arteries are roughly codominant. Visualized upper mediastinum shows no mass lesion. Lung apices are clear. Visualized soft tissues shows no mass, adenopathy or fluid collection. Visualized osseous structures shows no acute fracture or dislocation. No incidental thyroid nodules are noted. IMPRESSION: 1. Minimal contrast opacification of left V1 segment and proximal V2 segment representing high-grade stenosis with reconstitution within mid V2 segment. There appears to be occlusion of the distal left V2 and V3 segments with reconstitution in the V4 segment. Findings may be related to combination of dissection and thromboembolic phenomenon. 2. Predominantly noncalcified plaque at proximal right internal carotid artery results in approximately 50% stenosis by NASCET. [facility]-[id number] Procedure Note [facility], Radiology Results [facility] - 09/26/2017 2:12 AM CDT EXAMINATION: CT ANGIOGRAM NECK W WO CONTRAST CLINICAL HISTORY: eval for dissection in posterior circulation COMPARISON: MRA 09/25/2017. TECHNIQUE: Imaging of the cervical circulation was obtained from the upper thorax to the skull base during the arterial phase of enhancement. Postprocessing was performed with MIP multiplanar and 3D reconstructed images. CT scans are performed using radiation dose reduction techniques. Technical factors are evaluated and adjusted to ensure appropriate moderation of exposure. Automated dose management technology is applied to adjust radiation exposure while achieving a diagnostic quality image. FINDINGS: Left-sided aortic arch with common origin of brachiocephalic trunk and left common carotid artery as a variant. Predominantly noncalcified plaque at proximal right internal carotid artery results in approximately 50% stenosis by NASCET. Partial retropharyngeal course of right cervical ICA. Minimal calcific plaque at the left carotid bifurcation, without significant stenosis of the left cervical ICA. There is minimal contrast opacification of left V1 segment, proximal V2 segment representing high-grade stenosis. Reconstitution within mid V2 segment. There appears to be occlusion of the distal V2 and V3 segments with reconstitution in the V4 segment. The vertebral arteries are roughly codominant. Visualized upper mediastinum shows no mass lesion. Lung apices are clear. Visualized soft tissues shows no mass, adenopathy or fluid collection. Visualized osseous structures shows no acute fracture or dislocation. No incidental thyroid nodules are noted. IMPRESSION: 1. Minimal contrast opacification of left V1 segment and proximal V2 segment representing high-grade stenosis with reconstitution within mid V2 segment. There appears to be occlusion of the distal left V2 and V3 segments with reconstitution in the V4 segment. Findings may be related to combination of dissection and thromboembolic phenomenon. 2. Predominantly noncalcified plaque at proximal right internal carotid artery results in approximately 50% stenosis by NASCET. [facility]-[id number] Performing Organization Address City/State/Zipcode Phone Number [facility] [address] [place] [address] * Urinalysis screen and microscopy, with reflex to culture (09/26/2017 12:15 AM) Specimen site Clean catch [facility]IC[facility] Color, UA Yellow [facility]OMIC MEDICINE Appearance, UA Clear [facility] GENOMIC MEDICINE Specific gravity, UA 1.015 1.001 - 1.035 [facility]OMIC MEDICINE pH, UA 6.0 5.0 - 8.5 [facility] GENOMIC MEDICINE Protein, UA 2+ (A) Negative [facility] GENOMIC MEDICINE Glucose, UA Negative Negative [facility]Y [facility] GENOMIC MEDICINE Ketones, UA Negative Negative [facility] GENOMIC MEDICINE Bilirubin, UA Negative Negative [facility]Y AND GENOMIC MEDICINE Blood, UA Negative Negative [facility]Y AND GENOMIC MEDICINE Nitrite, UA Negative Negative [facility]Y AND GENOMIC MEDICINE Urobilinogen, UA Negative <2.0 [facility] AND GENOMIC MEDICINE Leukocyte esterase, UA Negative Negative [facility]Y AND GENOMIC MEDICINE WBC, UA 1 0 - 1 /HPF [facility] GENOMIC MEDICINE RBC, UA 3 0 - 5 /HPF [facility]OLOGY AND GENOMIC MEDICINE Bacteria, UA Trace None seen [facility]OLOGY AND GENOMIC MEDICINE Yeast, UA None seen [facility]OLOGY AND GENOMIC MEDICINE Yeast with pseudohyphae, None seen [facility]A PATHOLOGY AND GENOMIC MEDICINE Specimen Urine Performing Organization Address City/State/Zipcode Phone Number [facility] [place] [address] PATHOLOGY AND GENOMIC MEDICINE * MRA Neck Wo Contrast (09/26/2017 12:06 AM) Narrative Performed At EXAMINATION:MRA NECK WO CONTRAST RADIANT CLINICAL HISTORY:VBIdizzinessfalls. COMPARISON:None. TECHNIQUE: Neck MRA using 2D and 3D sfru-no-jqtiug technique with multi-planar MIP and 3D reconstruction. High-resolution sagittal T1 Cube with fat saturation sequence for dissection was performed. FINDINGS: There is about 60-70% stenosis according to the NASCET criteria in the right carotid bifurcation and proximal right ICA. The left carotid bifurcation is unremarkable. There is absence of flow signal in the left cervical and intracranial left vertebral artery. The dissection sequence does not demonstrates recent dissection. The right vertebral artery is patent. 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 Severe atherosclerotic stenosis of the proximal right ICA and right carotid bifurcation. [facility]-[id number] Procedure Note Interface, Radiology Results Incoming - 09/26/2017 12:21 AM CDT EXAMINATION: MRA NECK WO CONTRAST CLINICAL HISTORY: VBI dizziness falls. COMPARISON: None. TECHNIQUE: Neck MRA using 2D and 3D mmuh-gr-hygsyz technique with multi-planar MIP and 3D reconstruction. High-resolution sagittal T1 Cube with fat saturation sequence for dissection was performed. FINDINGS: There is about 60-70% stenosis according to the NASCET criteria in the right carotid bifurcation and proximal right ICA. The left carotid bifurcation is unremarkable. There is absence of flow signal in the left cervical and intracranial left vertebral artery. The dissection sequence does not demonstrates recent dissection. The right vertebral artery is patent. 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 Severe atherosclerotic stenosis of the proximal right ICA and right carotid bifurcation. [facility]-[id number] Performing Organization Address City/State/Zipcode Phone Number [facility] [address] [place] [address] * MRA Head Wo Contrast (09/26/2017 12:06 AM) Narrative Performed At EXAMINATION:MRA HEAD WO CONTRAST [facility] CLINICAL HISTORY:VBIdizzinessdysmetria of LUE COMPARISON:None. TECHNIQUE: Head MRA using 3D bhgo-nk-emcuio technique with multi-planar MIP and 3D reconstruction. FINDINGS: There is normal flow-related signal with no significant stenosis or occlusion along bilateral intracranial ICAs, ACAs, and MCAs. The anterior communicating artery complex is unremarkable. There is occlusion absence of flow signal in the left cervical and intracranial vertebral artery. The right vertebral artery is patent. The basilar artery and the posterior cerebral arteries are patent. There is no evidence of cerebral aneurysm in the proximal [place] within limits of MRA technique. IMPRESSION: Occlusion of the left vertebral artery. [facility]-[id number] Procedure Note Interface, Radiology Results Incoming - 09/26/2017 12:33 AM CDT EXAMINATION: MRA HEAD WO CONTRAST CLINICAL HISTORY: VBI dizziness dysmetria of LUE COMPARISON: None. TECHNIQUE: Head MRA using 3D jakx-gb-ldeqqu technique with multi-planar MIP and 3D reconstruction. FINDINGS: There is normal flow-related signal with no significant stenosis or occlusion along bilateral intracranial ICAs, ACAs, and MCAs. The anterior communicating artery complex is unremarkable. There is occlusion absence of flow signal in the left cervical and intracranial vertebral artery. The right vertebral artery is patent. The basilar artery and the posterior cerebral arteries are patent. There is no evidence of cerebral aneurysm in the proximal [place] within limits of MRA technique. IMPRESSION: Occlusion of the left vertebral artery. [facility]-[id number] Performing Organization Address City/[facility]/Zipcode Phone Number [facility] [address] [place] [address] * B natriuretic peptide (09/26/2017 12:03 AM) BNP 112 (H) 0 - 100 pg/mL [facility]OMIC MEDICINE Specimen Blood Performing Organization Address City/[facility]/Zipcode Phone Number [facility] [place] [address] PATHOLOGY AND GENOMIC MEDICINE * Lactic acid level (09/26/2017 12:03 AM) Lactic acid 1.5 0.5 - 2.2 mmol/L [facility]OLOGY AND GENOMIC MEDICINE Specimen Blood Performing Organization Address City/State/Zipcode Phone Number [facility] [address] [place] [address] PATHOLOGY AND GENOMIC MEDICINE * ECG ED Preliminary Interpretation - NOT AN ORDER (09/25/2017 10:10 PM) Narrative Performed At Devi Shaw Jr., MD 09/26/20179:23 PM ECG ED Preliminary Interpretation - Not an Order Performed by: DEVI SHAW JR. Authorized by: DEVI SHAW JR. 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 Authorized by: DEVI SHAW JR. 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 failure or compromise Critical care was time spent personally by me on the following activities:Development of treatment plan with patient or surrogate, discussions with consultants, discussions with primary provider, examination of patient, evaluation of patient's response to treatment, interpretation of cardiac output measurements, obtaining history from patient or surrogate, review of old charts, re-evaluation of patient's condition, pulse oximetry, ordering and review of radiographic studies, ordering and review of laboratory studies and ordering and performing treatments and interventions Kem 'yes' if you are taking over critical care for this patient from another provider.: no * ECG 12 lead (09/25/2017 9:51 PM) Ventricular rate 65 [facility] Atrial rate 65 [facility] AK interval 170 [facility] QRSD interval 92 [facility] QT interval 404 [facility] QTC interval 420 [facility] P axis 1 45 [facility] QRS axis 1 21 [facility] T wave axis 49 [facility] EKG impression Normal sinus rhythm-Normal [facility] ECG-No previous ECGs available- Performing Organization Address City/State/Zipcode Phone Number [facility] [address] [place] [address] after 01/26/2017 Insurance Payer Benefit Subscriber ID Type Phone Address Plan / Group AETNA MEDICARE AETNA xxxxxxxx HMO MEDICARE HMO/PPO [facility] [place] [address]
--- OUTSIDE RECORDS SUMMARY | 2018-01-27 14:45 | XMS REPORT | Summary of Care ---
Author Author MICHOACANO PARHAM N.P. Organization Unknown Address [facility] Phone Unavailable Care Team Providers Care Marketing Support Specialist Name Role Phone MICHOACANO PARHAM N.P. Unavailable Unavailable ELIUD OCHOA MD Unavailable Unavailable Unavailable Unavailable Functional Status Name Dates Details Functional status health issues are not documented Status: Name Dates Details Cognitive status health issues are not documented Status: Problems Name Dates Details Cerebellar stroke (434.91, I63.9) Status: Active Depression screen (V79.0, Z13.89) Status: Active Hyperlipidemia (272.4, E78.5) Status: Active Essential hypertension (401.9, I10) Status: Active Medications Name Dates Details Tamsulosin HCl - 0.4 MG Oral Capsule TAKE 1 CAPSULE DAILY Quantity: 30 * Start : 09-Jan-2018 Active Hydroxyurea 500 MG Oral Capsule TAKE 1 CAPSULE 3 TIMES DAILY * Refills: 0 * Start : 09-Jan-2018 Active AmLODIPine Besylate 10 MG Oral Tablet TAKE 1 TABLET BY MOUTH EVERY DAY * Quantity: 30 Refills: 3 * Start : 09-Jan-2018 Active Lisinopril 20 MG Oral Tablet TAKE 1 TABLET DAILY * Quantity: 30 Refills: 3 * Start : 09-Jan-2018 Active Sertraline HCl - 25 MG Oral Tablet TAKE 1 TABLET DAILY. * Quantity: 90 Refills: 1 OKPALA N.P., MUNACHI * Start : 09-Jan-2018 Active Aspir-81 81 MG Oral Tablet Delayed Release * Refills: 0 OKPALA N.P., MUNACHI * Start : 12-Jan-2018 Active Allergies and Adverse Reactions Name Dates Details No Known Drug Allergies (Allergy) Status: Active Past Medical History Name Dates Details History of Hypertension (401.9, I10) Status: Resolved Procedures Procedure Dates Details Polysomnography, sleep staging with 4+ parameters of sleep, attended by a technologist Date: 09-Jan-2018 History of Cranial Decompression Suboccipital Completed Immunization Name Dates Details Immunizations not documented Social History Name Dates Details - Status: Name Dates Details Former smoker Vital Signs Date Test Result Details [id number] BP Systolic 126 mm[Hg] Status: Comments: Location: RUE; Position: Sitting BP Diastolic 78 mm[Hg] Status: Comments: Location: RUE; Position: Sitting Height 66 in Status: Heart Rate 78 /min Status: Comments: Location: R Brachial Artery; Results Date Description Value Details Results not documented Plan of Care Name Dates Details Planned Observations Planned Goals not documented Planned Encounters Occupational Therapy Referral Physical Therapy Referral Appointment; MICHOACANO PARHAM NP On: 01-Apr-2018 10:30 Interventions Provided Medication Changes* Sertraline HCl - 25 MG Oral Tablet - Start Labs/Procedures/Imaging* Polysomnography, sleep staging with 4+ parameters of sleep, attended by a technologist; To Be Done: 09 Jan 2018 Plan* -- We provided education about stroke and TIA risk reduction * -- Continue antithrombotic for stroke prevention * -- Discussed with patient about lifestyle changes including a healthy diet similar to Mediterranean diet, exercising regularly, maintaining a healthy weight, moderating alcohol consumption and smoking cessation * -- Your blood pressure goal is less than 140/90 * -- Continue current anti-hypertensive medications * -- Discussed with patient lifestyle changes including a healthy low sodium diet and regular exercise * -- Monitor your blood pressure times daily and record in a blood pressure log * -- LDL goal is less than 70 * -- HDL goal > 55 * -- Triglyceride goal < 150 * -- Continue statin for lipid management * -- Screening for Sleep Apnea with sleep study * -- Recommend patient continue care with Sleep Medicine for further management * Follow up in 3months Discussion/Summary* Mr. 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 Instructions Name Dates Details Instructions not documented Encounters Appointment; LAURI CHEN M.D. Encounter Diagnosis: Problem not documented On: 21-Oct-2017 9:00 Appointment; LAURI CHEN M.D. Encounter Diagnosis: Problem not documented On: 11-Nov-2017 11:00 Appointment; LAURI CHEN M.D. Encounter Diagnosis: Problem not documented On: 09-Dec-2017 11:45 Appointment; MICHOACANO PARHAM NP Encounter Diagnosis: Problem not documented On: 09-Jan-2018 10:30
--- OUTSIDE RECORDS SUMMARY | 2018-01-27 14:45 | XMS REPORT | Summary of Care ---
Author Author [facility] Organization [facility] Address Unknown Phone Unavailable Encounter HQ Tessa(JAYSHREE) [id number] Date(s): 09/30/17 - 10/10/17 [facility] [address] [facility] provided by [facility] [place] [address]- Discharge Disposition: Home or Self Care Attending Physician: Petey Lee MD Admitting Physician: Veronica Lewis MD Referring Physician: Edison Burch MD Vital Signs 1 2 3 Most recent to oldest [Reference Range]: 167.64 cm (10/03/17 7:26 AM) 167.64 cm (10/03/17 3:33 AM) 167.64 cm (10/02/17 11:31 PM) Height 95 kg (10/10/17 5:00 AM) 72.004 kg (10/07/17 5:00 AM) 73.8 kg (10/06/17 5:26 AM) Current Weight 97.4 DegF (10/10/17 2:56 PM) 98.1 DegF (10/10/17 11:26 AM) 99.5 DegF *HI* (10/10/17 7:35 AM) Temperature Oral [96.4-99.1 DegF] 112/70 mmHg (10/10/17 4:00 PM) 108/68 mmHg (10/10/17 3:00 PM) 101/64 mmHg (10/10/17 2:00 PM) Blood Pressure [90-140/60-90 mmHg] 18 BRMIN (10/10/17 4:00 PM) 22 BRMIN *HI* (10/10/17 3:00 PM) 25 BRMIN *HI* (10/10/17 2:00 PM) Respiratory Rate [14-20 BRMIN] 95 kg (10/02/17 8:46 AM) 95 kg (10/01/17 2:03 AM) 95 kg (10/01/17 1:59 AM) Weight 33.8 m2 (10/01/17 1:39 AM) Body Mass Index Problem List No data available for this section Allergies, Adverse Reactions, Alerts Substance Reaction Severity Status NKDA Active Medications acetaminophen 650 mg=20.3 mL, PO, Q4H, PRN Pain 1-3/Temp > 100.4 F, 0 Refill(s) Start Date: 10/10/17 Status: Ordered acetaminophen 650 mg, 20.3 mL, Route: PO, Drug form: LIQ, Q4H, kg, PRN Pain 1-3/Temp > 100.4 F, Start date: 10/01/17 0:04:00 CDT, Stop date: 10/31/17 0:03:00 CDT Notes: Max yqujgrliyixgr=5653yd/day (4 gm/day). (Same as: Tylenol) Start Date: 10/01/17 Stop Date: 10/11/17 Status: Discontinued acetaminophen (ANES) Route: IV, Drug form: INJ, ONCE, Stop date: 10/01/17 12:01:00 CDT Start Date: 10/01/17 Stop Date: 10/01/17 Status: Completed amLODIPine 10 mg, 1 tab, Route: PO, Drug form: TAB, Daily, Dosing Weight 95, kg, Start date : 10/05/17 10:19:00 CDT, Duration: 30 day, Stop date: 11/04/17 9:00:00 CDT Notes: (Same as: Norvasc) Start Date: 10/05/17 Stop Date: 10/11/17 Status: Discontinued amLODIPine 10 mg oral tablet 10 mg=1 tab, PO, Daily, 0 Refill(s) Start Date: 10/10/17 Status: Ordered amoxicillin 875 mg oral tablet 875 mg=1 tab, PO, Q12H, # 20 tab, 0 Refill(s) Start Date: 10/10/17 Stop Date: 10/10/17 Status: Discontinued Ancef 2 gm, 20 mL, Route: IVPB, Drug form: SOLN, ABXQ8H, Dosing Weight 95, kg, Start d ate: 10/01/17 20:00:00 CDT, Duration: 1 day, Stop date: 10/02/17 12:00:00 CDT, A BX Indication: Surgical Prophylaxis Notes: (Same as Ancef) Start Date: 10/01/17 Stop Date: 10/02/17 Status: Discontinued Ancef 2 gm, Route: IVPB, ONCE, Dosing Weight 95, kg, Priority: STAT, Start date: 10/06 15:12:00 CDT, Stop date: 10/06/17 15:12:00 CDT, Surgical Prophylaxis Only; F or patients < 120 kg, ABX Indication: Surgical Prophylaxis Start Date: 10/06/17 Stop Date: 10/06/17 Status: Completed aspirin 81 mg, 1 tab, Route: CHEW, Drug form: CHEWTAB, Daily, Dosing Weight 95, kg, Star t date: 10/07/17 9:00:00 CDT, Duration: 30 day, Stop date: 11/05/17 9:00:00 CDT Notes: Take with food. Start Date: 10/07/17 Stop Date: 10/11/17 Status: Discontinued aspirin 325 mg tablet 325 mg, 1 tab, Route: PO, Drug form: TAB, Daily, Dosing Weight 95, kg, Start deborah e: 10/03/17 9:00:00 CDT, Duration: 30 day, Stop date: 11/01/17 9:00:00 CDT Notes: Take with food. Start Date: 10/03/17 Stop Date: 10/06/17 Status: Discontinued aspirin 325 mg tablet, enteric coated 325 mg, Route: PO, Drug form: ECTAB, Q24H, kg, Start date: 10/01/17 1:00:00 CDT, Duration: 30 day, Stop date: 10/30/17 1:00:00 CDT Start Date: 10/01/17 Stop Date: 10/01/17 Status: Canceled aspirin 81 mg tablet, chewable 81 mg, Route: PO, Drug form: CHEWTAB, Daily, kg, Start date: 10/01/17 9:00:00 CD T, Duration: 30 day, Stop date: 10/30/17 9:00:00 CDT Start Date: 10/01/17 Stop Date: 10/01/17 Status: Canceled aspirin 81 mg tablet, chewable 81 mg=1 tab, CHEW, Daily, 0 Refill(s) Start Date: 10/10/17 Status: Ordered atorvastatin 80 mg, 1 tab, Route: PO, Drug form: TAB, Bedtime, kg, Start date: 10/01/17 21:00 :00 CDT, Duration: 30 day, Stop date: 10/30/17 21:00:00 CDT Notes: Same as Lipitor Start Date: 10/01/17 Stop Date: 10/11/17 Status: Discontinued atorvastatin 80 mg oral tablet 80 mg=1 tab, PO, Bedtime, 0 Refill(s) Start Date: 10/10/17 Status: Ordered bisacodyl 10 mg, 1 supp, Route: VT, Drug form: SUPP, Daily, kg, PRN Constipation, Start da te: 10/01/17 0:04:00 CDT, Duration: 30 day, Stop date: 10/31/17 0:03:00 CDT Notes: (Same As: Dulcolax, Bisco-Lax) Start Date: 10/01/17 Stop Date: 10/11/17 Status: Discontinued calcium carbonate 500 mg (200 mg elemental calcium) oral tablet 500 mg, 1 tab, Route: PO, Drug form: CHEWTAB, PRN, kg, PRN Abnormal Lab Result, FOR ICU USE ONLY, Start date: 10/01/17 0:08:00 CDT, Duration: 30 day, Stop date: 10/31/17 0:07:00 CDT Notes: (Same As: Tums)Calcium Carbonate 500 od=563 mg elemental calcium Dose=_ mg calcium carbonate ( mg elemental calcium) Start Date: 10/01/17 Stop Date: 10/11/17 Status: Discontinued calcium carbonate 500 mg (200 mg elemental calcium) oral tablet 1,000 mg, 2 tab, Route: PO, Drug form: CHEWTAB, PRN, kg, PRN Abnormal Lab Result , FOR ICU USE ONLY, Start date: 10/01/17 0:08:00 CDT, Duration: 30 day, Stop deborah e: 10/31/17 0:07:00 CDT Notes: (Same As: Tums)Calcium Carbonate 500 mi=158 mg elemental calcium Dose=_ mg calcium carbonate ( mg elemental calcium) Start Date: 10/01/17 Stop Date: 10/11/17 Status: Discontinued calcium gluconate + Sodium Chloride 0.9% IV 50 mL 1 gm, 10 mL, Route: IVPB, PRN, kg, PRN Abnormal Lab Result, Start date: 10/01/17 0:08:00 CDT, Duration: 30 day, Stop date: 10/31/17 0:07:00 CDT, FOR ICU USE ONLY Notes: WASTE: F/P - Sink; E - Municipal Trash Bin Start Date: 10/01/17 Stop Date: 10/11/17 Status: Discontinued ceFAZolin (ANES) Route: IV, Drug form: INJ, ONCE, Stop date: 10/01/17 8:56:00 CDT Start Date: 10/01/17 Stop Date: 10/01/17 Status: Completed cefTRIAXone 2 gm, Route: IVP, Drug form: PDR/INJ, [id number], Dosing Weight 95, kg, Start date: 10/04/17 13:00:00 CDT, Duration: 4 day, Stop date: 10/07/17 13:00:00 CDT, ABX I ndication: Pneumonia Notes: (Same As: Rocephin).Use with 100 mL NS and infuse over 30 min MEDICA TION WASTE Product Size: 2000 mgProduct Wasted: _0__ mg Start Date: 10/04/17 Stop Date: 10/06/17 Status: Discontinued chlorhexidine topical 0.12% liquid 15 mL, Route: Swab Mouth, PRN, Drug form: LIQ, PRN Other -See Comment, Start deborah e: 10/01/17 0:14:00 CDT, Duration: 30 day, Stop date: 10/31/17 0:13:00 CDT Notes: (Same As: Peridex) Start Date: 10/01/17 Stop Date: 10/03/17 Status: Discontinued chlorhexidine topical 0.12% liquid 15 mL, Route: Swab Mouth, Q4H, Drug form: LIQ, Start date: 10/01/17 4:00:00 CDT, Duration: 30 day, Stop date: 10/31/17 0:00:00 CDT Notes: (Same As: Peridex) Start Date: 10/01/17 Stop Date: 10/03/17 Status: Discontinued cyclobenzaprine 10 mg oral tablet 10 mg=1 tab, PO, Q12H, 0 Refill(s) Start Date: 10/10/17 Stop Date: 10/26/17 Status: Ordered dexamethasone (ANES) Route: IV, Drug form: INJ, ONCE, Stop date: 10/01/17 9:51:00 CDT Start Date: 10/01/17 Stop Date: 10/01/17 Status: Completed docusate 100 mg, 10 mL, Route: PO, Drug form: LIQ, Q12H, kg, Start date: 10/09/17 10:00:0 0 CDT, Duration: 30 day, Stop date: 11/08/17 9:00:00 CDT Notes: (Same as: Colace) Start Date: 10/09/17 Stop Date: 10/11/17 Status: Discontinued docusate 100 mg, 10 mL, Route: PO, Drug form: LIQ, Q12H, kg, Start date: 10/01/17 9:00:00 CDT, Stop date: 10/30/17 21:00:00 CDT Notes: (Same as: Colace) Start Date: 10/01/17 Stop Date: 10/09/17 Status: Voided With Results docusate sodium 150 mg/15 mL oral liquid 100 mg=10 mL, PO, Q12H, 0 Refill(s) Start Date: 10/10/17 Status: Ordered DuoNeb inhalation solution 3 ml, Route: NEB, Drug Form: SOLN, Dosing Weight 95, kg, Q4H, PRN Respiratory Pr otocol, Start date: 10/06/17 7:05:00 CDT, Duration: 30 day, Stop date: 11/05/17 7:04:00 CDT Notes: (Same as: Duoneb) Start Date: 10/06/17 Stop Date: 10/11/17 Status: Discontinued esmolol (ANES) Route: IV, Drug form: INJ, ONCE, Stop date: 10/01/17 12:06:00 CDT Start Date: 10/01/17 Stop Date: 10/01/17 Status: Completed famotidine 20 mg, 2 mL, Route: IVP, Drug form: INJ, Q12H, kg, Start date: 10/01/17 9:00:00 CDT, Duration: 30 day, Stop date: 10/30/17 21:00:00 CDT Notes: (Same as: Pepcid)Can be dilute in 5-10cc NS IVP: Slow IV push over at le ast 2 minutes. Start Date: 10/01/17 Stop Date: 10/03/17 Status: Discontinued fenofibrate 160 mg oral tablet 160 mg=1 tab, PO, Daily, # 90 tab, 0 Refill(s) Start Date: 10/10/17 Stop Date: 10/10/17 Status: Discontinued fentaNYL 12.5 microgram, 0.25 mL, Route: IVP, Drug form: INJ, Q2H, kg, PRN Pain Score 1-3 , Start date: 10/01/17 0:15:00 CDT, Duration: 30 day, Stop date: 10/31/17 0:14:0 0 CDT Notes: (Same as: Sublimaze) Preservative free. Start Date: 10/01/17 Stop Date: 10/03/17 Status: Discontinued fentaNYL 25 microgram, 0.5 mL, Route: IVP, Drug form: INJ, Q2H, kg, PRN Pain Score 4-6, S tart date: 10/01/17 0:15:00 CDT, Duration: 30 day, Stop date: 10/31/17 0:14:00 C DT Notes: (Same as: Sublimaze) Preservative free. Start Date: 10/01/17 Stop Date: 10/03/17 Status: Discontinued fentaNYL (ANES) Route: IV, Drug form: INJ, ONCE, Stop date: 10/01/17 9:01:00 CDT Start Date: 10/01/17 Stop Date: 10/01/17 Status: Completed fentaNYL 1000 microgram in 20 mL NS (Titrate.) IV 1,000 microgram 1,000 microgram, 20 mL, Rate: Titrate, Start Dose: 50 microgram/hr, Titration: 2 5 microgram/hour every 15 minutes, Goal(s): RASS -1, Max Dose: 300 microgram/hr, Route: IV, Dosing Weight 95 kg, Total Volume: 20, Start date: 10/01/17 17:03:00 CDT, Durat... Start Date: 10/01/17 Stop Date: 10/03/17 Status: Discontinued Flexeril 10 mg, 1 tab, Route: PO, Drug form: TAB, Q12H, Dosing Weight 95, kg, Priority: N OW, Start date: 10/07/17 14:28:00 CDT, Stop date: 11/06/17 9:00:00 CDT Notes: (Same As: Flexeril) Start Date: 10/07/17 Stop Date: 10/11/17 Status: Discontinued Flomax 0.4 mg, 1 cap, Route: PO, Drug form: CAP, After Breakfast, Dosing Weight 95, kg, Start date: 10/10/17 9:29:00 CDT, Duration: 30 day, Stop date: 11/09/17 8:30:00 CDT Notes: (Same As: Flomax) "Do Not Crush" Start Date: 10/10/17 Stop Date: 10/11/17 Status: Discontinued Flomax 0.4 mg oral capsule 0.4 mg=1 cap, PO, Daily, # 30 cap, 0 Refill(s) Start Date: 10/10/17 Status: Ordered Flonase 0.05 mg/inh nasal spray 2 spray, NASAL, BID, # 16 gm, 0 Refill(s) Start Date: 10/10/17 Stop Date: 10/10/17 Status: Discontinued guar gum oral powder (NutriSource) 4 gm, 1 pkt, Route: PO, Drug Form: PCKT, Dosing Weight 95, kg, BID, Start date: 10/02/17 17:00:00 CDT, Duration: 30 day, Stop date: 11/01/17 9:00:00 CDT Notes: (Same as: Nutrisource Fiber) Dissolve packet in at least 4 oz (120 mL) of water and stir until completely dissolved before administering down the feeding tube. Start Date: 10/02/17 Stop Date: 10/11/17 Status: Discontinued heparin 5,000 unit, 1 mL, Route: SUB-Q, Drug form: INJ, Q8H, Dosing Weight 95, kg, Start date: 10/02/17 16:00:00 CDT, Duration: 30 day, Stop date: 11/01/17 8:00:00 CDT Notes: porcine heparin Start Date: 10/02/17 Stop Date: 10/11/17 Status: Discontinued heparin additive 25,000 unit [14 unit/kg/hr] + Premix Diluent Dextrose 5% 500 mL 500 mL, Route: IV, Total Volume: 500 mL, Start date: 10/01/17 0:18:00 CDT, Durat ion: 30 day, Stop date: 10/31/17 0:17:00 CDT Start Date: 10/01/17 Stop Date: 10/01/17 Status: Discontinued hydrALAZINE 10 mg, 0.5 mL, Route: IVP, Drug form: INJ, Q2H, Dosing Weight 95, kg, PRN Hypert ension, Start date: 10/01/17 14:43:00 CDT, Duration: 30 day, Stop date: 10/31/17 14:42:00 CDT, For SBP > 160 Notes: (Same as: Apresoline)Push over 5 minutes Start Date: 10/01/17 Stop Date: 10/11/17 Status: Discontinued hydrochlorothiazide-lisinopril 25 mg-20 mg oral tablet 1 tab, PO, Daily, # 30 tab, 0 Refill(s) Start Date: 10/10/17 Stop Date: 10/10/17 Status: Discontinued hydroxyurea 2,000 mg, 50 mL, Route: DHT, Drug form: SUSP, QPM, Dosing Weight 95, kg, Start d ate: 10/07/17 9:00:00 CDT, Stop date: 11/05/17 17:00:00 CDT Notes: (Same as: Hydrea)Chemotherapy agent/Handle with caution Start Date: 10/07/17 Stop Date: 10/10/17 Status: Discontinued hydroxyurea 2,000 mg, 4 cap, Route: PO, Drug form: CAP, QPM, Dosing Weight 95, kg, Start deborah e: 10/11/17 17:00:00 CDT, Duration: 30 day, Stop date: 11/09/17 17:00:00 CDT Notes: (Same as: Hydrea)Chemotherapy agent/Handle with caution"Do Not Crush"WAST E: F/P - Black; E - Yellow Start Date: 10/11/17 Stop Date: 10/11/17 Status: Canceled hydroxyurea 2,000 mg=50 mL, PO, QPM, 0 Refill(s) Start Date: 10/10/17 Stop Date: 10/10/17 Status: Discontinued hydroxyurea 2,000 mg, PO, QPM, 0 Refill(s) Start Date: 10/10/17 Status: Ordered Imodium A-D 2 mg, 1 cap, Route: PO, Drug form: CAP, ONCE, Dosing Weight 95, kg, Start date: 10/06/17 8:53:00 CDT, Stop date: 10/06/17 8:53:00 CDT Notes: (Same as: Imodium) MAX adult dose is 8 caps/day Start Date: 10/06/17 Stop Date: 10/06/17 Status: Completed Imodium A-D 2 mg, 10 mL, Route: PO, Drug form: LIQ, Q6H, Dosing Weight 95, kg, Start date: 0 10/07/17 12:00:00 CDT, Duration: 30 day, Stop date: 11/06/17 6:00:00 CDT Notes: (Same as: Imodium) Start Date: 10/07/17 Stop Date: 10/10/17 Status: Discontinued labetalol 10 mg, 2 mL, Route: IVP, Drug form: INJ, Q1H, Dosing Weight 95, kg, PRN Hyperten salma, Priority: Routine, Start date: 10/01/17 14:43:00 CDT, Duration: 30 day, St op date: 10/31/17 14:42:00 CDT, For SBP > 160; HOLD for pulse < 60 Start Date: 10/01/17 Stop Date: 10/11/17 Status: Discontinued Lactated Ringers Injection IV (ANES) 1000 mL Route: IV, Total Volume: 1,000, Start date: 10/01/17 8:21:00 CDT, Stop date: 9:21:00 CDT Start Date: 10/01/17 Stop Date: 10/01/17 Status: Completed lactobacillus acidophilus 1 tab, Route: DHT, Drug Form: TAB, Dosing Weight 95, kg, Daily, Start date: 09/13 08/29 9:00:00 CDT, Duration: 30 day, Stop date: 11/04/17 9:00:00 CDT Start Date: 10/06/17 Stop Date: 10/05/17 Status: Deleted lactobacillus rhamnosus GG 1 cap, Route: DHT, Drug Form: CAP, Daily, Start date: 10/06/17 9:00:00 CDT, Dura tion: 30 day, Stop date: 11/04/17 9:00:00 CDT Notes: Same as Augustin Start Date: 10/06/17 Stop Date: 10/11/17 Status: Discontinued lisinopril 5 mg, 1 tab, Route: PO, Drug form: TAB, Daily, Dosing Weight 95, kg, Start date: 10/03/17 9:00:00 CDT, Duration: 30 day, Stop date: 11/01/17 9:00:00 CDT Notes: (Same as: Prinivil, Zestril) Start Date: 10/03/17 Stop Date: 10/04/17 Status: Discontinued lisinopril 20 mg, 1 tab, Route: PO, Drug form: TAB, Q12H, Dosing Weight 95, kg, Start date: 10/04/17 9:00:00 CDT, Stop date: 11/02/17 21:00:00 CDT Notes: (Same as: Prinivil, Zestril) Start Date: 10/04/17 Stop Date: 10/11/17 Status: Discontinued lisinopril 20 mg oral tablet 20 mg=1 tab, PO, Q12H, 0 Refill(s) Start Date: 10/10/17 Status: Ordered magnesium oxide 800 mg, 2 tab, Route: PO, Drug form: TAB, PRN, kg, PRN Abnormal Lab Result, FOR ICU USE ONLY, Start date: 10/01/17 0:08:00 CDT, Duration: 30 day, Stop date: 0:07:00 CDT Notes: (Same as: Mag-Ox 400)Magnesium oxide [id number] elemental magnesiumDose= ____mg magnesium oxide (___mg elemental magnesium) Start Date: 10/01/17 Stop Date: 10/11/17 Status: Discontinued magnesium sulfate 2 gm, 50 mL, Route: IVPB, Drug form: INJ, PRN, kg, PRN Abnormal Lab Result, Star t date: 10/01/17 0:08:00 CDT, Duration: 30 day, Stop date: 10/31/17 0:07:00 CDT, FOR ICU USE ONLY Notes: WASTE: F/P - Sink; E - Municipal Trash Bin Start Date: 10/01/17 Stop Date: 10/11/17 Status: Discontinued mannitol 50 gm, 250 mL, Route: IVPB, Drug form: INJ, ONCE, Dosing Weight 95, kg, Start da te: 10/01/17 3:04:00 CDT, Stop date: 10/01/17 3:04:00 CDT Notes: (Same as: Osmitrol)Infuse through 5 micron or smaller filter WASTE: F/P - Sink; E - Municipal Trash Bin Start Date: 10/01/17 Stop Date: 10/01/17 Status: Completed melatonin 3 mg oral tablet 3 mg, 1 tab, Route: PO, Drug Form: TAB, Dosing Weight 95, kg, Bedtime, Start deborah e: 10/06/17 21:00:00 CDT, Duration: 30 day, Stop date: 11/04/17 21:00:00 CDT Notes: (Same as: Melatonin) Start Date: 10/06/17 Stop Date: 10/11/17 Status: Discontinued melatonin 3 mg oral tablet 3 mg, PO, Bedtime, 0 Refill(s) Start Date: 10/10/17 Status: Ordered normal saline 0.9% IV 1,000 mL 1,000 mL, Rate: 30 ml/hr, Infuse over: 33.3 hr, Route: IV, Dosing Weight 95 kg, Total Volume: 1,000, Start date: 10/02/17 9:45:00 CDT, Stop date: 11/01/17 9:45: 00 CDT, 2.13, m2 Start Date: 10/02/17 Stop Date: 10/06/17 Status: Discontinued Norvasc 5 mg oral tablet 5 mg=1 tab, PO, Daily, # 30 tab, 0 Refill(s) Start Date: 10/10/17 Stop Date: 10/10/17 Status: Discontinued NS (Bolus) IV 1,000 mL, 1,000 ml/hr, Infuse Over: 1 hr, Route: IV, 1,000, Drug form: INJ, ONCE , Priority: STAT, kg, Start date: 10/01/17 0:08:00 CDT, Stop date: 10/01/17 0:08 :00 CDT Start Date: 10/01/17 Stop Date: 10/01/17 Status: Completed NS (Bolus) IV 1,000 mL, 1,000 ml/hr, Infuse Over: 1 hr, Route: IV, 1,000, Drug form: INJ, ONCE , Priority: STAT, Dosing Weight 95 kg, Start date: 10/02/17 5:22:00 CDT, Stop da te: 10/02/17 5:22:00 CDT Start Date: 10/02/17 Stop Date: 10/02/17 Status: Completed ocular lubricant 1 appl, Route: BOTH EYES, Q6H, Drug form: OINT, Start date: 10/01/17 6:00:00 CDT , Duration: 30 day, Stop date: 10/31/17 0:00:00 CDT Notes: (Same as: Lacri-Lube, Duratears Naturale, Artificial Tears, and Tears Aga in ) Start Date: 10/01/17 Stop Date: 10/03/17 Status: Discontinued ocular lubricant Each Affected Eye, QID, PRN Dry Eyes, 0 Refill(s) Start Date: 10/10/17 Status: Ordered phenylephrine (ANES) Route: IV, Drug form: INJ, ONCE, Stop date: 10/01/17 9:26:00 CDT Start Date: 10/01/17 Stop Date: 10/01/17 Status: Completed potassium chloride 20 mEq, 15 mL, Route: NJ, Drug form: LIQ, PRN, kg, PRN Abnormal Lab Result, Star t date: 10/01/17 0:08:00 CDT, Duration: 30 day, Stop date: 10/31/17 0:07:00 CDT, FOR ICU USE ONLY Notes: (Same as: Potassium Chloride) Start Date: 10/01/17 Stop Date: 10/07/17 Status: Discontinued potassium chloride 20 mEq, 1 tab, Route: PO, Drug form: ERTAB, PRN, kg, PRN Abnormal Lab Result, St art date: 10/01/17 0:08:00 CDT, Duration: 30 day, Stop date: 10/31/17 0:07:00 CD T, FOR ICU USE ONLY Notes: (Same as: K-Dur 20)"Do Not Crush"For patients unable to swallow tablet, d issolve in one half glass of water. Allow about 2 minutes for the tablets to dis integrate. Stir before giving to prepare slurry and administer.Please exclude Pa tients with feeding tube less than 14 Filipino (Dobhoff, J-tube etc) and pediat victorino and patients. With food and full glass of water Start Date: 10/01/17 Stop Date: 10/07/17 Status: Discontinued potassium chloride 10 mEq, 50 mL, Route: IVPB, Drug form: INJ, PRN, kg, PRN Abnormal Lab Result, Vi a peripheral line, Start date: 10/01/17 0:08:00 CDT, Duration: 30 day, Stop date : 10/31/17 0:07:00 CDT, FOR ICU USE ONLY Notes: (Same as: KCL) Infuse over 2 hours. Start Date: 10/01/17 Stop Date: 10/07/17 Status: Discontinued potassium chloride 20 mEq, 100 mL, Route: IVPB, Drug form: INJ, PRN, kg, PRN Abnormal Lab Result, V ia central line, Start date: 10/01/17 0:08:00 CDT, Duration: 30 day, Stop date: 10/31/17 0:07:00 CDT, FOR ICU USE ONLY Notes: (Same as: KCL) Infuse no faster than 10 mEq/hr if given peripherally. Start Date: 10/01/17 Stop Date: 10/06/17 Status: Discontinued potassium phosphate + Sodium Chloride 0.9% IV 250 mL 15 mmol, 5 mL, Route: IVPB, PRN, kg, PRN Abnormal Lab Result, Start date: 0:08:00 CDT, Duration: 30 day, Stop date: 10/31/17 0:07:00 CDT, FOR ICU USE O NLY Notes: (Same as: K Phosphate.) 1 mMol phoshate has 1.47 mEq potassium Infuse o jesus 4 hours Start Date: 10/01/17 Stop Date: 10/07/17 Status: Discontinued potassium phosphate + Sodium Chloride 0.9% IV 250 mL 45 mmol, 15 mL, Route: IVPB, PRN, kg, PRN Abnormal Lab Result, Start date: 10/01 0:08:00 CDT, Duration: 30 day, Stop date: 10/31/17 0:07:00 CDT, FOR ICU USE ONLY Notes: (Same as: K Phosphate.) 1 mMol phoshate has 1.47 mEq potassium Infuse o jesus 4 hours Start Date: 10/01/17 Stop Date: 10/07/17 Status: Discontinued potassium phosphate + Sodium Chloride 0.9% IV 250 mL 30 mmol, 10 mL, Route: IVPB, PRN, kg, PRN Abnormal Lab Result, Start date: 10/01 0:08:00 CDT, Duration: 30 day, Stop date: 10/31/17 0:07:00 CDT, FOR ICU USE ONLY Notes: (Same as: K Phosphate.) 1 mMol phoshate has 1.47 mEq potassium Infuse o jesus 4 hours Start Date: 10/01/17 Stop Date: 10/07/17 Status: Discontinued potassium phosphate-sodium phosphate 250 mg-280 mg-160 mg oral powder for recons titution 2 pkt, Route: PO, Drug Form: PDR/REC, kg, PRN, PRN Abnormal Lab Result, FOR ICU USE ONLY, Start date: 10/01/17 0:08:00 CDT, Duration: 30 day, Stop date: 8 0:07:00 CDT Notes: (Same as: Phos-NaK) Each 1.5 gm pkt has 250mg phosphorous. Mix w/2.5oz w ater and stir. Start Date: 10/01/17 Stop Date: 10/07/17 Status: Discontinued propofol 20 mg, 2 mL, Route: IV, Drug form: Emulsion, ONCE, Dosing Weight 95, kg, Start d ate: 10/01/17 19:24:00 CDT, Stop date: 10/01/17 19:24:00 CDT Notes: If Diprivan - change bottle & tubing every 12 hrPer state nursing law propofol can only be given by a nurse if patient is intubated or being intubated (unless the nurse is a TOWBOAT OPERATOR). Same as: Diprivan Start Date: 10/01/17 Stop Date: 10/02/17 Status: Completed propofol (ANES) Route: IV, Drug form: INJ, ONCE, Stop date: 10/01/17 9:06:00 CDT Start Date: 10/01/17 Stop Date: 10/01/17 Status: Completed propofol (ANES) 10 mg Route: IV, Drug form: INJ, Start date: 10/01/17 8:37:00 CDT, Stop date: 10/01/17 9:37:00 CDT Start Date: 10/01/17 Stop Date: 10/01/17 Status: Completed propofol 10 mg/mL (Titrate.) IV 1,000 mg 1,000 mg, 100 mL, Rate: Titrate, Start Dose: 5 microgram/kg/min, Titration: 5 mi crogram/kg/min every 15 minutes, Goal(s): rass -1, Max Dose: 50 mcg/kg/min, Rout e: IV, Dosing Weight 95 kg, Total Volume: 100, Start date: 10/01/17 0:15:00 CDT, Stop date:... Notes: If Diprivan - change bottle & tubing every 12 hrPer state nursing law propofol can only be given by a nurse if patient is intubated or being intubated (unless the nurse is a TOWBOAT OPERATOR). Same as: Diprivan Start Date: 10/01/17 Stop Date: 10/01/17 Status: Discontinued Refresh Dry Eye Therapy 1 drp, Route: Each Affected Eye, QID, Drug form: SOLN, PRN Dry Eyes, Start date: 10/06/17 18:15:00 CDT, Duration: 30 day, Stop date: 11/05/17 18:14:00 CDT Notes: (Same as: Aquasite) Start Date: 10/06/17 Stop Date: 10/11/17 Status: Discontinued Reglan 10 mg, 2 mL, Route: IVP, Drug form: INJ, ONCE, Dosing Weight 95, kg, Start date: 10/04/17 6:45:00 CDT, Stop date: 10/04/17 6:45:00 CDT Notes: (Same as: Reglan) Start Date: 10/04/17 Stop Date: 10/04/17 Status: Completed rocuronium (ANES) Route: IV, Drug form: INJ, ONCE, Stop date: 10/01/17 9:01:00 CDT Start Date: 10/01/17 Stop Date: 10/01/17 Status: Completed Saline Flush 0.9% 10 ml, Route: IVP, Drug Form: INJ, kg, Q12H, Start date: 10/01/17 9:00:00 CDT, D uration: 30 day, Stop date: 10/30/17 21:00:00 CDT Notes: Same as: BD Posiflush Sterile Start Date: 10/01/17 Stop Date: 10/11/17 Status: Discontinued Saline Flush 0.9% 10 ml, Route: IVP, Drug Form: INJ, kg, PRN, PRN Line Flush, Start date: 10/01/17 0:04:00 CDT, Duration: 30 day, Stop date: 10/31/17 0:03:00 CDT Notes: Same as: BD Posiflush Sterile Start Date: 10/01/17 Stop Date: 10/11/17 Status: Discontinued Sodium Chloride 0.9% IV (ANES) 1000 mL Route: IV, Total Volume: 1,000, Start date: 10/01/17 8:57:00 CDT, Stop date: 9:57:00 CDT Start Date: 10/01/17 Stop Date: 10/01/17 Status: Completed Sodium Chloride 0.9% IV 1,000 mL 1,000 mL, Rate: 75 ml/hr, Infuse over: 13.3 hr, Route: IV, Total Volume: 1,000, Start date: 10/01/17 0:04:00 CDT, Duration: 30 day, Stop date: 10/31/17 0:03:00 CDT Start Date: 10/01/17 Stop Date: 10/01/17 Status: Discontinued sodium chloride 14.6% intravenous solution 100 mEq, 40 mL, 80 ml/hr, Route: IV Central, Drug Form: INJ, Dosing Weight 95, k g, ONCE, Start date: 10/01/17 1:49:00 CDT, Stop date: 10/01/17 1:49:00 CDT Notes: Call MD if sodium concentration >150 mEq/L Start Date: 10/01/17 Stop Date: 10/01/17 Status: Completed sodium chloride 14.6% intravenous solution 100 mEq, 40 mL, 80 ml/hr, Route: IV Central, Drug Form: INJ, Dosing Weight 95, k g, ONCE, Start date: 10/01/17 5:52:00 CDT, Stop date: 10/01/17 5:52:00 CDT Notes: Call MD if sodium concentration >150 mEq/L Start Date: 10/01/17 Stop Date: 10/01/17 Status: Completed Sodium Chloride 3% (Hypertonic) IV 500 mL 500 mL, Rate: 50 ml/hr, Infuse over: 10 hr, Route: IV, Dosing Weight 95 kg, Tota l Volume: 500, Start date: 10/01/17 3:04:00 CDT, Stop date: 10/31/17 3:03:00 CDT , 2.13, m2 Notes: "Administer by central venous catheter or a peripherally inserted central catheter (PICC) line.3% Sodium Chloride may be infused via peripheral administr ation into large vein (antecubital) only in the case of emergency for short term use until a central line can be inserted" (Same as: Hypertonic Saline 3%)krystal ntration=0.513 mEq/mL Start Date: 10/01/17 Stop Date: 10/02/17 Status: Discontinued Sodium Chloride 3% inhalation solution 3 mL, Route: NEB, Drug Form: SOLN, Dosing Weight 95, kg, RQ4H, Start date: 10/06 11:00:00 CDT, Duration: 30 day, Stop date: 11/05/17 7:00:00 CDT Notes: SEE RT DOCUMENTATION (Same as: Hypertonic Saline 3%, Inhalation) Start Date: 10/06/17 Stop Date: 10/11/17 Status: Discontinued sodium phosphate + Sodium Chloride 0.9% IV 250 mL 30 mmol, 10 mL, Route: IVPB, PRN, kg, PRN Abnormal Lab Result, Start date: 10/01 0:08:00 CDT, Duration: 30 day, Stop date: 10/31/17 0:07:00 CDT, FOR ICU USE ONLY Start Date: 10/01/17 Stop Date: 10/11/17 Status: Discontinued sodium phosphate + Sodium Chloride 0.9% IV 250 mL 15 mmol, 5 mL, Route: IVPB, PRN, kg, PRN Abnormal Lab Result, Start date: 0:08:00 CDT, Duration: 30 day, Stop date: 10/31/17 0:07:00 CDT, FOR ICU USE O NLY Start Date: 10/01/17 Stop Date: 10/11/17 Status: Discontinued sodium phosphate + Sodium Chloride 0.9% IV 250 mL 45 mmol, 15 mL, Route: IVPB, PRN, kg, PRN Abnormal Lab Result, Start date: 10/01 0:08:00 CDT, Duration: 30 day, Stop date: 10/31/17 0:07:00 CDT, FOR ICU USE ONLY Start Date: 10/01/17 Stop Date: 10/11/17 Status: Discontinued tramadol 100 mg, 2 tab, Route: PO, Drug form: TAB, Q6H, Dosing Weight 95, kg, PRN Pain Sc ore 4-6, Start date: 10/08/17 13:09:00 CDT, Duration: 30 day, Stop date: 8 13:08:00 CDT Notes: Not to exceed 400mg/day. (Same As: Ultram) Start Date: 10/08/17 Stop Date: 10/11/17 Status: Discontinued tramadol 50 mg oral tablet 50 mg, 1 tab, Route: PO, Drug form: TAB, Q6H, Dosing Weight 95, kg, PRN Pain Sco re 1-3, Start date: 10/05/17 10:18:00 CDT, Duration: 30 day, Stop date: 11/04/17 10:17:00 CDT Notes: Not to exceed 400mg/day. (Same As: Ultram) Start Date: 10/05/17 Stop Date: 10/11/17 Status: Discontinued tramadol 50 mg oral tablet 50 mg=1 tab, PO, Q6H, PRN Pain Score 1-3, 0 Refill(s) Start Date: 10/10/17 Status: Ordered Unasyn 3 gm, Route: IVPB, Drug form: PDR/INJ, ABXQ6H, Dosing Weight 95, kg, Start date: 10/02/17 5:00:00 CDT, Duration: 30 day, Stop date: 10/31/17 23:00:00 CDT Notes: Dosing based on Ampicillin component (Same as: Unasyn) Start Date: 10/02/17 Stop Date: 10/02/17 Status: Discontinued vancomycin 1.25 gm, Route: IV, Q8H, Dosing Weight 95, kg, Start date: 10/07/17 0:00:00 CDT, Duration: 7 day, Stop date: 10/13/17 16:00:00 CDT, ABX Indication: Pneumonia Start Date: 10/07/17 Stop Date: 10/06/17 Status: Deleted vancomycin + Sodium Chloride 0.9% IV 250 mL 1,500 mg, Route: IVPB, [id number], Dosing Weight 95, kg, Start date: 10/02/17 22:00 :00 CDT, Duration: 7 day, Stop date: 10/09/17 10:00:00 CDT, ABX Indication: Pneu monia Notes: TIME CRITICAL MEDICATION(Same As: Vancocin)Infusion rate< 1000 mg: infuse over 1 [id number] - 1500 mg: infuse over 1.5 hoursVancomycin FOR IV SET [id number] - 2000 mg: infuse over 2 hours> 2001 mg: infuse over 2.5 hoursFor adult patients only: Round to nearest 250 mg per Medical Staff approval MEDICATION WASTE Product Size: 1000 mgProduct Wasted: ___ mg Start Date: 10/02/17 Stop Date: 10/04/17 Status: Discontinued vancomycin + Sodium Chloride 0.9% IV 250 mL 2 gm, Route: IV, ONCE, Dosing Weight 95, kg, Start date: 10/02/17 9:42:00 CDT, S top date: 10/02/17 9:42:00 CDT, ABX Indication: Pneumonia Notes: TIME CRITICAL MEDICATION(Same As: Vancocin)Infusion rate< 1000 mg: infuse over 1 [id number] - 1500 mg: infuse over 1.5 hoursVancomycin FOR IV SET [id number] - 2000 mg: infuse over 2 hours> 2001 mg: infuse over 2.5 hoursFor adult patients only: Round to nearest 250 mg per Medical Staff approval MEDICATION WASTE Product Size: 1000 mgProduct Wasted: ___ mg Start Date: 10/02/17 Stop Date: 10/02/17 Status: Completed vancomycin + Sodium Chloride 0.9% IV 250 mL 1,500 mg, Route: IVPB, [id number], Dosing Weight 95, kg, Start date: 10/06/17 18:00 :00 CDT, Duration: 30 day, Stop date: 11/05/17 6:00:00 CDT, ABX Indication: Pneu monia Notes: TIME CRITICAL MEDICATION(Same As: Vancocin)Infusion rate< 1000 mg: infuse over 1 [id number] - 1500 mg: infuse over 1.5 hoursVancomycin FOR IV SET [id number] - 2000 mg: infuse over 2 hours> 2001 mg: infuse over 2.5 hoursFor adult patients only: Round to nearest 250 mg per Medical Staff approval MEDICATION WASTE Product Size: 1000 mgProduct Wasted: ___ mg Start Date: 10/06/17 Stop Date: 10/08/17 Status: Discontinued Visipaque 320mg/ml 60 mL, Route: IVP, Drug Form: SOLN, kg, ONCALL, STAT, Start date: 10/01/17 0:18: 00 CDT, Duration: 1 doses or times, Dose=2.2ml/kg, Max [id number] -- "To be inf used by Radiology Staff ONLY" Start Date: 10/01/17 Stop Date: 10/01/17 Status: Completed Zofran 4 mg, 2 mL, Route: IVP, Drug form: INJ, Q8H, kg, PRN Nausea, Start date: 8 0:19:00 CDT, Duration: 30 day, Stop date: 10/31/17 0:18:00 CDT Notes: (Same as: Zofran) MEDICATION WASTE Product Size: 4 mgProduct Was leroy: _0__ mg Start Date: 10/01/17 Stop Date: 10/11/17 Status: Discontinued Zofran 4 mg, 2 mL, Route: IVP, Drug form: INJ, Q8H, Dosing Weight 95, kg, PRN Nausea, S tart date: 10/04/17 11:30:00 CDT, Duration: 30 day, Stop date: 11/03/17 11:29:00 CDT Notes: (Same as: Zofran) MEDICATION WASTE Product Size: 4 mgProduct Was leroy: ___ mg Start Date: 10/04/17 Stop Date: 10/11/17 Status: Discontinued Zosyn 3.375 gm, Route: IVPB, Drug form: PDR/INJ, ABXQ8H, Dosing Weight 95, kg, CrCl > =20 ml/min infuse over 4 hours, Start date: 10/02/17 10:00:00 CDT, Duration: 7 d ay, Stop date: 10/09/17 2:00:00 CDT, ABX Indication: Pneumonia Notes: (Same as: Zosyn)Dosing based on Piperacillin component MEDICATION WA RENE Product Size: 3375 mgProduct Wasted: ___ mg Start Date: 10/02/17 Stop Date: 10/04/17 Status: Discontinued Zosyn 3.375 gm, Route: IVPB, Drug form: PDR/INJ, ABXQ6H, Dosing Weight 95, kg, Start d ate: 10/06/17 17:00:00 CDT, Duration: 7 day, Stop date: 10/13/17 11:00:00 CDT, A BX Indication: Pneumonia Notes: (Same as: Zosyn)Dosing based on Piperacillin component MEDICATION Product Size: 3375 mgProduct Wasted: ___ mg Start Date: 10/06/17 Stop Date: 10/11/17 Status: Discontinued ZyrTEC 10 mg oral tablet 10 mg=1 tab, PO, BID, 0 Refill(s) Start Date: 10/10/17 Status: Ordered Results BLOOD BANK RESULTS 1 2 3 Most recent to oldest [Reference Range]: A POS *Unknown* (10/01/17 12:36 AM) ABO/Rh Negative (10/01/17 12:36 AM) Antibody Scrn ELECTROLYTES 1 2 3 Most recent to oldest [Reference Range]: 141 mEq/L (10/10/17 4:21 AM) 146 mEq/L *HI* (10/09/17 1:39 AM) 148 mEq/L *HI* (10/08/17 4:42 AM) Sodium Lvl [135-145 mEq/L] 4.3 mEq/L (10/10/17 4:21 AM) 4.2 mEq/L (10/09/17 1:39 AM) 4.6 mEq/L (10/08/17 4:42 AM) Potassium Lvl [3.5-5.1 mEq/L] 107 mEq/L (10/10/17 4:21 AM) 109 mEq/L (10/09/17 1:39 AM) 111 mEq/L *HI* (10/08/17 4:42 AM) Chloride Lvl [95-109 mEq/L] 24 mEq/L (10/10/17 4:21 AM) 26 mEq/L (10/09/17 1:39 AM) 23 mEq/L *LOW* (10/08/17 4:42 AM) CO2 [24-32 mEq/L] 14.3 mEq/L (10/10/17 4:21 AM) 15.2 mEq/L (10/09/17 1:39 AM) 18.6 mEq/L (10/08/17 4:42 AM) AGAP [10.0-20.0 mEq/L] CHEM PANEL 1 2 3 Most recent to oldest [Reference Range]: 1.01 mg/dL (10/10/17 4:21 AM) 1.22 mg/dL (10/09/17 1:39 AM) 1.25 mg/dL (10/08/17 4:42 AM) Creatinine Lvl [0.50-1.40 mg/dL] 77 mL/min/1.73m2 1 *NA* (10/10/17 4:21 AM) 61 mL/min/1.73m2 2 *NA* (10/09/17 1:39 AM) 60 mL/min/1.73m2 3 *NA* (10/08/17 4:42 AM) eGFR 32 mg/dL *HI* (10/10/17 4:21 AM) 40 mg/dL *HI* (10/09/17 1:39 AM) 42 mg/dL *HI* (10/08/17 4:42 AM) BUN [7-22 mg/dL] 108 mg/dL *HI* (10/10/17 4:21 AM) 133 mg/dL *HI* (10/09/17 1:39 AM) 126 mg/dL *HI* (10/08/17 4:42 AM) Glucose Lvl [70-99 mg/dL] 6.6 g/dL (10/01/17 12:36 AM) Total Protein [6.4-8.4 g/dL] 3.2 g/dL *LOW* (10/01/17 12:36 AM) Albumin Lvl [3.5-5.0 g/dL] 3.4 g/dL (10/01/17 12:36 AM) Globulin [2.7-4.2 g/dL] 0.9 (10/01/17 12:36 AM) A/G Ratio [0.7-1.6] 8.2 mg/dL *LOW* (10/10/17 4:21 AM) 8.3 mg/dL *LOW* (10/09/17 1:39 AM) 8.4 mg/dL *LOW* (10/08/17 4:42 AM) Calcium Lvl [8.5-10.5 mg/dL] 4.0 mg/dL (10/08/17 4:42 AM) 4.0 mg/dL (10/07/17 12:03 AM) 4.1 mg/dL (10/06/17 12:08 AM) Phosphorus [2.5-4.5 mg/dL] 2.5 mg/dL *HI* (10/08/17 4:42 AM) 2.4 mg/dL (10/07/17 12:03 AM) 2.4 mg/dL (10/06/17 12:08 AM) Magnesium Lvl [1.8-2.4 mg/dL] 45 unit/L (10/01/17 12:36 AM) ALT [0-65 unit/L] 36 unit/L (10/01/17 12:36 AM) AST [0-37 unit/L] 55 unit/L (10/01/17 12:36 AM) Alk Phos [39-136 unit/L] 0.5 mg/dL (10/01/17 12:36 AM) Bili Total [0.2-1.3 mg/dL] 0.1 mg/dL (10/01/17 12:36 AM) Bili Direct [0.0-0.3 mg/dL] 0.4 mg/dL (10/01/17 12:36 AM) Bili Indirect [0.0-1.0 mg/dL] 1.9 mMol/L (10/01/17 1:46 PM) Lactic Acid Lvl [0.5-2.2 mMol/L] 305 mOsm/kg *HI* (10/01/17 12:36 AM) Osmolality [280-300 mOsm/kg] 1.12 ng/mL *HI* (10/06/17 10:09 AM) <0.05 ng/mL (10/01/17 12:36 AM) Procalcitonin Lvl [0.00-0.10 ng/mL] 1Result Comment: The eGFR is calculated using the CKD-EPI formula. In most young, healthy individuals the eGFR will be >90 mL/min/1.73m2. The eGFR declines with age. An eGFR of 60-89 may be normal in some populations, particularly the elderly, for whom the CKD-EPI formula has not been extensively validated. Use of the eGFR is not recommended in the following populations: Individuals with unstable creatinine concentrations, including patients and those with serious co-morbid conditions. Patients with extremes in muscle mass or diet. The data above are obtained from the National Kidney Disease Education Program ( NK[employer]) which additionally recommends that when the eGFR is used in patients with extremes of body mass index for purposes of drug dosing, the eGFR should be mul tiplied by the estimated BMI. 2Result Comment: The eGFR is calculated using the CKD-EPI formula. In most young, healthy individuals the eGFR will be >90 mL/min/1.73m2. The eGFR declines with age. An eGFR of 60-89 may be normal in some populations, particularly the elderly, for whom the CKD-EPI formula has not been extensively validated. Use of the eGFR is not recommended in the following populations: Individuals with unstable creatinine concentrations, including patients and those with serious co-morbid conditions. Patients with extremes in muscle mass or diet. The data above are obtained from the National Kidney Disease Education Program ( NKDEP) which additionally recommends that when the eGFR is used in patients with extremes of body mass index for purposes of drug dosing, the eGFR should be mul tiplied by the estimated BMI. 3Result Comment: The eGFR is calculated using the CKD-EPI formula. In most young, healthy individuals the eGFR will be >90 mL/min/1.73m2. The eGFR declines with age. An eGFR of 60-89 may be normal in some populations, particularly the elderly, for whom the CKD-EPI formula has not been extensively validated. Use of the eGFR is not recommended in the following populations: Individuals with unstable creatinine concentrations, including patients and those with serious co-morbid conditions. Patients with extremes in muscle mass or diet. The data above are obtained from the National Kidney Disease Education Program ( NKDEP) which additionally recommends that when the eGFR is used in patients with extremes of body mass index for purposes of drug dosing, the eGFR should be mul tiplied by the estimated BMI. CARDIAC ENZYMES 1 2 3 Most recent to oldest [Reference Range]: 1.24 ng/mL 1 *CRIT* (10/01/17 8:51 PM) 1.49 ng/mL 2 *CRIT* (10/01/17 6:04 PM) 1.63 ng/mL 3 *CRIT* (10/01/17 1:46 PM) Troponin-I [0.00-0.40 ng/mL] 1Result Comment: Critical Result(s) called to Rangel Max at 10/02/2017 01:38 byJw. Read back OK. 2Result Comment: Critical Result(s) called to Maribel at 10/01/2017 20:13 by FARHEEN. Read back OK. 3Result Comment: Critical Result(s) called to Uriah Knapp at 10/01/2017 16:[address] Read back OK. LIPIDS 1 2 3 Most recent to oldest [Reference Range]: 2.97 *LOW* (10/01/17 4:30 AM) CHD Risk [4.00-7.30] 89 mg/dL (10/01/17 4:30 AM) Chol [<=199 mg/dL] 210 mg/dL *HI* (10/01/17 4:30 AM) Trig [<=149 mg/dL] 30 mg/dL *LOW* (10/01/17 4:30 AM) HDL [>=61 mg/dL] 17 mg/dL (10/01/17 4:30 AM) LDL (Calculated) [<=99 mg/dL] 42 *NA* (10/01/17 4:30 AM) VLDL SPECIAL CHEMISTRY 1 2 3 Most recent to oldest [Reference Range]: 5.9 % *HI* (10/03/17 12:26 AM) 6.1 % *HI* (10/01/17 4:30 AM) Hgb A1C [<=5.6 %] PARATHYROID PROFILE 1 2 3 Most recent to oldest [Reference Range]: 1.12 mMol/L (10/08/17 4:42 AM) 1.05 mMol/L (10/07/17 12:03 AM) 1.08 mMol/L (10/06/17 12:08 AM) Ca Ion WB [1.05-1.25 mMol/L] 1.12 mMol/L (10/08/17 4:42 AM) 1.07 mMol/L (10/07/17 12:03 AM) 1.07 mMol/L (10/06/17 12:08 AM) Ca Norm WB [1.05-1.25 mMol/L] DRUG SCREEN 1 2 3 Most recent to oldest [Reference Range]: Negative *NA* (10/01/17 12:36 AM) U Amph Scr [Negative] Negative *NA* (10/01/17 12:36 AM) U Kat Scr [Negative] Negative *NA* (10/01/17 12:36 AM) U Benzodia Scr [Negative] Negative *NA* (10/01/17 12:36 AM) U Cocaine Scr [Negative] Negative *NA* (10/01/17 12:36 AM) U Opiate Scr [Negative] Negative *NA* (10/01/17 12:36 AM) U Phencyc Scr [Negative] Negative *NA* (10/01/17 12:36 AM) U Cannab Scr [Negative] See Note (10/01/17 12:36 AM) UDS Note TOXICOLOGY 1 2 3 Most recent to oldest [Reference Range]: 0600 *NA* (10/08/17 4:42 AM) 1000 *NA* (10/03/17 9:53 AM) [facility] Tr TND 16.3 ug/ml *NA* (10/08/17 4:42 AM) 12.8 ug/ml *NA* (10/03/17 9:53 AM) [facility] 1 2 3 Most recent to oldest [Reference Range]: 81 mEq/L *NA* (10/01/17 12:36 AM) U Sodium 690 mOsm/kg (10/01/17 12:36 AM) U Osmolality [300-800 mOsm/kg] URINE AND STOOL 1 2 3 Most recent to oldest [Reference Range]: Slight Cloudy (10/01/17 12:36 AM) UA Turbidity [Clear] Yellow *NA* (10/01/17 12:36 AM) UA Color [Yellow] 5.5 (10/01/17 12:36 AM) UA pH [5.0-8.0] 1.025 (10/01/17 12:36 AM) UA Spec Grav [<=1.030] Negative (10/01/17 12:36 AM) UA Glucose [Negative] Large *ABN* (10/01/17 12:36 AM) UA Blood [Negative] Negative *NA* (10/01/17 12:36 AM) UA Ketones [Negative] 30 mg/dL *ABN* (10/01/17 12:36 AM) UA Protein [Negative mg/dL] 0.2 EU/dL (10/01/17 12:36 AM) UA Urobilinogen [0.1-1.0 EU/dL] Negative *NA* (10/01/17 12:36 AM) UA Bili [Negative] Negative (10/01/17 12:36 AM) UA Leuk Est [Negative] Negative (10/01/17 12:36 AM) UA Nitrite [Negative] 3-5 /HPF *ABN* (10/01/17 12:36 AM) UA RBC [0-2 /HPF] None Seen (10/01/17 12:36 AM) UA Sq Epi [Few] Few /HPF (10/01/17 12:36 AM) UA Amorph Latia [None Seen /HPF] Few /LPF (10/01/17 12:36 AM) UA Mucus [None Seen /LPF] None Seen (10/09/17 2:49 AM) Fecal Leukocyte BODY FLUIDS 1 2 3 Most recent to oldest [Reference Range]: 96 mg/dL *HI* (10/06/17 3:27 PM) Glucose CSF [45-80 mg/dL] 8 mg/dL *LOW* (10/06/17 3:27 PM) Protein CSF [15-45 mg/dL] xxxxxxx (10/06/17 3:27 PM) Tube Num CSF Colorless (10/06/17 3:27 PM) Color CSF [Colorless] Moderate *ABN* (10/06/17 3:27 PM) Clarity CSF [Clear] Colorless (10/06/17 3:27 PM) Supernat CSF [Colorless] 13 /mm3 *HI* (10/06/17 3:27 PM) RBC CSF [0-0 /mm3] 4 /mm3 (10/06/17 3:27 PM) WBC CSF [0-5 /mm3] IMMUNOLOGY 1 2 3 Most recent to oldest [Reference Range]: Non-Reactive *NA* (10/01/17 12:36 AM) Treponemal Ab [Non-Reactive] <2.9 mg/L (10/01/17 12:36 AM) CRP [<=2.9 mg/L] HEMATOLOGY 1 2 3 Most recent to oldest [Reference Range]: 15.9 K/CMM *HI* (10/10/17 4:21 AM) 17.1 K/CMM *HI* (10/09/17 1:39 AM) 19.8 K/CMM *HI* (10/08/17 4:42 AM) WBC [3.7-10.4 K/CMM] 4.23 M/CMM *LOW* (10/10/17 4:21 AM) 4.29 M/CMM *LOW* (10/09/17 1:39 AM) 4.51 M/CMM *LOW* (10/08/17 4:42 AM) RBC [4.70-6.10 M/CMM] 12.7 g/dL *LOW* (10/10/17 4:21 AM) 12.6 g/dL *LOW* (10/09/17 1:39 AM) 13.2 g/dL *LOW* (10/08/17 4:42 AM) Hgb [14.0-18.0 g/dL] 37.3 % *LOW* (10/10/17 4:21 AM) 38.0 % *LOW* (10/09/17 1:39 AM) 39.7 % *LOW* (10/08/17 4:42 AM) Hct [42.0-54.0 %] 88.1 fL (10/10/17 4:21 AM) 88.7 fL (10/09/17 1:39 AM) 88.2 fL (10/08/17 4:42 AM) MCV [80.0-94.0 fL] 30.1 pg (10/10/17 4:21 AM) 29.5 pg (10/09/17 1:39 AM) 29.2 pg (10/08/17 4:42 AM) MCH [27.0-31.0 pg] 34.2 g/dL (10/10/17 4:21 AM) 33.3 g/dL (10/09/17 1:39 AM) 33.1 g/dL (10/08/17 4:42 AM) MCHC [32.0-36.0 g/dL] 15.0 % *HI* (10/10/17 4:21 AM) 14.9 % *HI* (10/09/17 1:39 AM) 14.9 % *HI* (10/08/17 4:42 AM) RDW [11.5-14.5 %] 8.8 fL (10/10/17 4:21 AM) 8.6 fL (10/09/17 1:39 AM) 8.6 fL (10/08/17 4:42 AM) MPV [7.4-10.4 fL] 777 K/CMM *HI* (10/10/17 4:21 AM) 777 K/CMM *HI* (10/09/17 1:39 AM) 807 K/CMM *HI* (10/08/17 4:42 AM) Platelet [133-450 K/CMM] 83.1 % *HI* (10/10/17 4:21 AM) 79.5 % *HI* (10/09/17 1:39 AM) 79.4 % *HI* (10/08/17 4:42 AM) Segs [45.0-75.0 %] 6.5 % *LOW* (10/10/17 4:21 AM) 6.5 % *LOW* (10/09/17 1:39 AM) 6.0 % *LOW* (10/08/17 4:42 AM) Lymphocytes [20.0-40.0 %] 5.3 % (10/10/17 4:21 AM) 8.3 % (10/09/17 1:39 AM) 8.8 % (10/08/17 4:42 AM) Monocytes [2.0-12.0 %] 4.0 % (10/10/17 4:21 AM) 4.8 % *HI* (10/09/17 1:39 AM) 5.0 % *HI* (10/08/17 4:42 AM) Eosinophils [0.0-4.0 %] 1.1 % *HI* (10/10/17 4:21 AM) 0.9 % (10/09/17 1:39 AM) 0.8 % (10/08/17 4:42 AM) Basophils [0.0-1.0 %] 13.2 K/CMM *HI* (10/10/17 4:21 AM) 13.6 K/CMM *HI* (10/09/17 1:39 AM) 15.7 K/CMM *HI* (10/08/17 4:42 AM) Segs-Bands # [1.5-8.1 K/CMM] 1.0 K/CMM (10/10/17 4:21 AM) 1.1 K/CMM (10/09/17 1:39 AM) 1.2 K/CMM (10/08/17 4:42 AM) Lymphocytes # [1.0-5.5 K/CMM] 0.8 K/CMM (10/10/17 4:21 AM) 1.4 K/CMM *HI* (10/09/17 1:39 AM) 1.7 K/CMM *HI* (10/08/17 4:42 AM) Monocytes # [0.0-0.8 K/CMM] 0.6 K/CMM *HI* (10/10/17 4:21 AM) 0.8 K/CMM *HI* (10/09/17 1:39 AM) 1.0 K/CMM *HI* (10/08/17 4:42 AM) Eosinophils # [0.0-0.5 K/CMM] 0.2 K/CMM (10/10/17 4:21 AM) 0.2 K/CMM (10/09/17 1:39 AM) 0.2 K/CMM (10/08/17 4:42 AM) Basophils # [0.0-0.2 K/CMM] Normal (10/05/17 12:14 AM) Normal (10/02/17 12:47 AM) RBC Morph slight *NA* (10/07/17 12:03 AM) Toxic Gran slight *NA* (10/07/17 12:03 AM) Neut Vac Normal (10/05/17 12:14 AM) Normal (10/02/17 12:47 AM) Plt Morph 17 mm/hr *HI* (10/03/17 12:26 AM) Sed Rate [0-15 mm/hr] 14.9 seconds *HI* (10/01/17 1:46 PM) 13.8 seconds (10/01/17 12:36 AM) PT [12.0-14.7 seconds] 1.16 (10/01/17 1:46 PM) 1.06 (10/01/17 12:36 AM) INR [0.85-1.17] 29.5 seconds (10/01/17 1:46 PM) 31.0 seconds (10/01/17 12:36 AM) PTT [22.9-35.8 seconds] 350 ARU *NA* (10/01/17 4:39 AM) ASA Effect Plt MOLECULAR DIAGNOSTIC 1 2 3 Most recent to oldest [Reference Range]: Comment 1 *NA* (10/01/17 1:46 PM) e13a2 (b2a2) transcript Comment 2 *NA* (10/01/17 1:46 PM) e14a2 (b3a2) transcript Comment 3 *NA* (10/01/17 1:46 PM) e1a2 transcript Comment 4 *NA* (10/01/17 1:46 PM) BCR-ABL Interp Comment 5 *NA* (10/01/17 1:46 PM) BCR-ABL Director Review Comment 6 *NA* (10/01/17 1:46 PM) BCR-ABL Background Comment 7 *NA* (10/01/17 1:46 PM) BCR-ABL Methodology Negative (10/04/17 1:59 PM) C difficile DNA [Negative] 1Result Comment: <0.0032 % (sensitivity limit of assay) 2Result Comment: <0.0032 % (sensitivity limit of assay) 3Result Comment: <0.0032 % (sensitivity limit of assay) 4Result Comment: NEGATIVE for the BCR-ABL1 e1a2 (p190), e13a2 (b2a2, p210) and e14a2 (b3a2, p210) fusion transcripts. These results do not rule out the presence of rare BCR-ABL1 transcripts not detected by this assay. 5Result Comment: Becky Cao, PhD, [facility] Director, Molecular Genetics [facility] [place], [place] 6Result Comment: This assay can detect three different types of BCR-ABL1 fusion transcripts associated with CML, ALL, and AML: e13a2 (previously b2a2) and e14a2 (previously b3a2) (major breakpoint, p210), as well as e1a2 (minor breakpoint, p190). The e13a2 and e14a2 transcript values are titrated to the current International Scale (IS). The standardized baseline is 100% BCR-ABL1 (IS) and major molecular response (MMR) is equivalent to 0.1% BCR-ABL1 (IS) corresponding to a 3-log reduction. Results should be correlated with appropriate clinical and laboratory information as indicated. 7Result Comment: Total RNA is isolated from the sample and subject to a real- time, reverse transcriptase polymerase chain reaction (RT- PCR). The PCR primers and probes are specific for BCR-ABL1 e13a2, e14a2 and e1a2 fusion transcripts. The ABL1 transcript is amplified as the control for cDNA quantity and quality. Serial dilutions of a validated positive control RNA with known t(9;22) BCR-ABL1 are used as reference for quantification of BCR-ABL1 relative to ABL1. The numeric BCR-ABL1 level is reportd as % BCR- ABL1/ABL1 and the detection sensitivity is 4.5 log below the standard baseline. This test was developed and its performance characteristics determined by [employer]. It has not been cleared or approved by the Food and Drug Administration. References: 1. Marilia T and Juancarlos S: Seminars in Hematology 2003; 40 (suppl2):62-68. 2. Cherry CARMICHAEL, et al. Blood 2010; 116: [id number]. 3. NCCN Clinical Practice Guidelines in Oncology, Chronic Myeloid Leukemia. V2. 2017. Performed At: [facility] [place] [address] [facility] [place], [place] [id number] Justo Myles MD Ph:[phone] Performed At: [facility] [place] [address] [facility] [place], [place] [id number] Justo Myles MD Ph:[phone] BACTERIAL - SEROLOGY 1 2 3 Most recent to oldest [Reference Range]: Negative (10/01/17 1:46 PM) MRSA by PCR Microbiology Reports TEST: Culture: Urine STATUS: Auth (Verified) BODY SITE: SOURCE: Urine, Ortiz COLLECTED DATE/TIME: 10/09/17 5:32 PM FINAL REPORT No Growth TEST: Culture: Stool STATUS: Auth (Verified) BODY SITE: SOURCE: Stool COLLECTED DATE/TIME: 10/09/17 2:49 AM FINAL REPORT Normal Enteric Dominique Isolated No Salmonella, Shigella, Or Campylobacter Isolated TEST: Culture: CSF w/Gram Stain STATUS: Auth (Verified) BODY SITE: SOURCE: Cerebral Spinal Fluid COLLECTED DATE/TIME: 10/06/17 3:27 PM FINAL REPORT No Growth STAIN REPORT Gram Stain Performed By: [facility] TEST: Culture: Urine STATUS: Auth (Verified) BODY SITE: SOURCE: Urine, Ortiz COLLECTED DATE/TIME: 10/01/17 6:04 PM FINAL REPORT No Growth TEST: Culture: Respiratory w/Gram Stain STATUS: Auth (Verified) BODY SITE: SOURCE: Bronch Rock. Lavage COLLECTED DATE/TIME: 10/01/17 12:36 AM FINAL REPORT Few Klebsiella pneumoniae ssp pneumoniae Normal Respiratory Dominique Isolated STAIN REPORT Gram Stain Performed By: [facility] ORGANISM:Klebsiella pneumoniae ssp pneumoniae Immunizations Given and Recorded Vaccine Date Status Refusal Reason pneumococcal 13-valent vaccine 10/10/17 Given Procedures No data available for this section Social History Social History Type Response Smoking Status Unknown if ever smoked; Exposure to Tobacco Smoke Unable to obtain; Cigarette Smoking Last 365 Days Unable to obtain; Reg Smoking Cessation Counseling No entered on: 10/02/17 Assessment and Plan Extracted from: Title: Hematology Progress Note Author: Kobe Olivier MD Date: 10/10/17 Patient: SIMONA NOLAN Age: 67 years Sex: Male : 1950 Associated Diagnoses: None Author: Kobe Olivier MD Subjective NAEO. Working with PT/OT, following commands and interacting with family but still intermittently confused. AAOx4 for me. No complaints at this time. Going to rehab. Health Status Allergies: Allergic Reactions (Selected) Severity Not Documented NKDA- No reactions were documented. Objective Meds Scheduled Meds (15):amLODIPine, aspirin, atorvastatin, cyclobenzaprine (Flexeril), docusate, guar gum (guar gum oral powder (NutriSource)), heparin, hydroxyurea, lactobacillus rhamnosus GG, lisinopril, melatonin (melatonin 3 mg oral tablet), piperacillin-tazobactam (Zosyn), sodium chloride (Saline Flush 0.9%), sodium chloride (Sodium Chloride 3% inhalation solution), tamsulosin (Flomax) Unscheduled Meds: None PRN Meds (19):acetaminophen, albuterol-ipratropium (DuoNeb inhalation solution), bisacodyl, calcium carbonate (calcium carbonate 500 mg (200 mg elemental calcium) oral tablet), calcium carbonate (calcium carbonate 500 mg (200 mg elemental calcium) oral tablet), calcium gluconate + Sodium Chloride 0.9% IV 50 mL, hydrALAZINE, labetalol, magnesium oxide, magnesium sulfate, ocular lubricant (Refresh Dry Eye Therapy), ondansetron (Zofran), ondansetron (Zofran), sodium chloride (Saline Flush 0.9%), sodium phosphate + Sodium Chloride 0.9% IV 250 mL, sodium phosphate + Sodium Chloride 0.9% IV 250 mL, sodium phosphate + Sodium Chloride 0.9% IV 250 mL, tramadol (tramadol 50 mg oral tablet), tramadol One Time Meds: None Continuous Infusions: None I&O Input/Output RecordInOutBal 4hr Tot 210 [id number] 2824hr Tot 80 470 -390 VS/Measurements Measurements from flowsheet : Measurements 10/06/2017 05:26 Weight Collection Method Measured Current Weight 73.8 kg Weight Difference Percent -22.316 % Weight Entered is <10% of Previous Wt Confirmed 10/05/2017 06:20 Weight Collection Method Estimated Current Weight 95 kg Weight Difference Percent 0 % , Vital Signs (last 24 hrs) Last Charted Temp Oral97.4 DegF (OCT 10 14:56) Heart Rate Ujdzrw60 bpm (OCT 10 16:00) Resp Rate 18 BRMIN (OCT 10 16:00) AXQ332 mmHg (OCT 10 16:00) DBP70 mmHg (OCT 10 16:00) KgC284 % (OCT 10 16:00) CONSTITUTIONAL: Well-nourished HM. AAOx4, in no acute distress. Following commands. HEENT: Normocephalic, atraumatic. PERRL. Moist oral mucosa, oropharynx clear without lesion, no sinus tenderness. NECK: Supple, no JVD. Thickset. CHEST: CTAB, no wheezes. CARDIAC: Regular heart rate and rhythm, no murmur. ABDOMEN: Soft, flat and non-distended. Normoactive bowel sounds, no hepatosplenomegaly. SKIN: No rashes or lesions. EXTREMITIES: No edema, no cyanosis, no clubbing. MUSCULOSKELETAL: Active range of motion. NEUROLOGIC: No focal deficits, moving all extremities. Following commands. Review / Management Results review: Labs (Last four charted values) WBC H 15.9(OCT 10)H 17.1(OCT 09)H 19.8(SEP 27)H 24.5(OCT 07) Hgb L 12.7(MINOO 29)L 12.6(MINOO 28)L 13.2(MINOO 27)14.5(OCT 07) Hct L 37.3(MINOO 29)L 38.0(MINOO 28)L 39.7(MINOO 27)43.1(MINOO 26) Plt H 777(MINOO 29)H 777(MINOO 28)H 807(MINOO 27)H 836(MINOO 26) Na 141(MINOO 29)H 146(MINOO 28)H 148(MINOO 27)145(MINOO 26) K 4.3(MINOO 29)4.2(MINOO 28)4.6(MINOO 27)4.1(MINOO 26) CO2 24(MINOO 29)26(MINOO 28)L 23(MINOO 27)25(MINOO 26) Cl 107(MINOO 29)109(MINOO 28)H 111(MINOO 27)H 111(MINOO 26) Cr 1.01(MINOO 29)1.22(MINOO 28)1.25(MINOO 27)1.08(MINOO 26) BUN H 32(MINOO 29)H 40(MINOO 28)H 42(MINOO 27)H 36(MINOO 26) Glucose Random H 108(MINOO 29)H 133(MINOO 28)H 126(MINOO 27)H 145(MINOO 26) Mg H 2.5(MINOO 27)2.4(MINOO 26)2.4(MINOO 25)2.3(MINOO 24) Phos 4.0(MINOO 27)4.0(OCT 07)4.1(OCT 06)3.7(SEP 24) Ca L 8.2(OCT 10)L 8.3(OCT 09)L 8.4(OCT 08)L 8.0(OCT 07) PT H 14.9(SEP 20)13.8(OCT 01) INR 1.16(OCT 01)1.06(OCT 01) PTT 29.5(OCT 01)31.0(OCT 01) Troponin C 1.24(OCT 01)C 1.49(OCT 01)C 1.63(OCT 01)C 1.51(OCT 01). Impression and Plan The patient was seen and examined by me with the resident/PSYCH NP/PA and I agree with the History/Exam documented. Mr Nolan is a 67 yo M w H HTN, HLD who was transferred from [facility] 09/30 after finding evolving L inferior cerebellar infarct causing mass effect. S/p NSY decompressive surgery. Hematology consulted for polycythemia work-up. #Polycythemia vera, newly diagnosed this admission JAK2 results from [facility] faxed over with positive [id number] mutation. EPO level at 3.8 (reference range 2.6 to 18.5), on the lower side of normal. - Hematocrit stable/downtrending, under goal of 45. He is s/p phlebotomy and 1x hydroxyurea at [facility] on 09/30. - Continue hydroxyurea - BCR/ABL negative #Leukocytosis - WBC 15.9 K today. Likely reactive s/p procedure and also from steroids. - CML negative. #Thrombocytosis likely 2/2 PV with possible ET. - <1 million, so no need to r/o secondary vonWillebrand's disease. Likely from PV with possible ET. Counts too high to be reactive from stroke/infection. - We would recommend continuing 2g hydroxyurea daily for continued thrombocytosis. Follow-up with Dr. Saldivar in heme clinic in 10 days for labs and continued management. Family aware. We have asked our [facility] process to reach out to them for appointment. He needs to go to a rehab that will be able to facilitate transportation to clinic, primary team aware. - Continue aspirin 81 daily Patient seen and d/w Dr. Saldivar. We will continue to follow while patient is in hospital. Kobe Olivier, PGY-2, IM, [facility] Addendum TEACHING PHYSICIAN ADDENDUM. I saw and personally examined the patient with the Resident, by Yariel, Dr. Soy Bullock on 10/10/2017 and I have reviewed the note above and agree with the Rigoberto S history, exam findings and the plan of care. on 10/11/2017 22:11 Extracted from: Title: Stroke Team Author: Erica Jin NP Date: 10/10/17 [facility]-STROKE NEUROLOGY DISCHARGE SUMMARY Date of Admission: 09/30/17 Date of Discharge: 10/10/17 Attending of Record: Dr. Lee Admit Diagnosis: Lethargy, dizziness, N/V Discharge Diagnosis: Left cerebellar stroke Left vertebral artery occlusion Right vertevral artery stenosis Cerebral edema Pseudomenicocele Klebsiella PNA HTN Polycythemia Vera Neck Pain Dysphagia Consults Obtained: Hematology Neurosurgery Brief HPI: 67yo male with PMH of HTN, who was admitted to [facility] in 09/25 due to acute onset of headache, dizziness, imbalance, falls, and N/V. Initial workup in the ED revealed a left inferior cerebellar infarct. Vessel imaging revealed left vert occlusion from V2 to V4 segment, right vert stenosis. He was started on Heparing gtt due to this finding. During his hospital stay, he was found to have elevated Hgb levels up to 23, and was diagnosed with polycythemia vera. He continue to have persistant symptoms throughout his hospital stay. On 09/30, patient became more lethargic, and CTH and MRI revealed progression of his left cerebellar stroke, with development of hydrocephalus. He was started on Dexa, received hypertonic boluses and mannitol. He was transferred to [facility] for HLOC and NSGY evaluation, for possible craniectomy. On arrival, patient was drowsy but arousable, following commands with antigravity in all extremities. CTH revealed edema and hemorrhage in area of stroke, with posterior fossa mass effect. NSGY was consulted and recommended close monitoring. Hospital Course: admitted to ICU with left cerebellar stroke -> taken to OR for sub-occipital decompression -> exam stable post procedure-> R frontal EVD placed overnight-> extubated 10/03-> started on Reglan for hiccups 10/04-> had swallow eval yesterday, hiccups improving today -> inappropriate for FEES per speech -> consider transfer to stroke unit if stable for 24 hours after EVD removal. Se chiquis Neck pain, started flexeril/tramadol. 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 Etilogy: large vessel athero and hypercoagulable state from polycythemia vera (new) Left cerebellar stroke left verterbral artery occlusion Right vertebral artery stenosis Cerebral Edema PLAN: - S/p sub-occ crani and EVD - SBP goal < 150 - Continue ASA, statin - Per PT no helmet needed - Pt discussed with Dr. Lee Pslittleomenicocele -NSGY s/o f/u as outpt Klebsiella PNA - Abx per ICU - Leukocytosis improving - Ceftriaxone - completed 3 days - Continue Zosyn day 8, discontinued vanc 10/08 - Monitor cultures -> NGTD HTN - Well controlled overnight, continue current regimen - SBP goal <150 - PRNs >180 Polycythemia Vera - Per Hemes notes below, appreciate consult JAK2 results from [facility] faxed over with positive [id number] mutation. EPO level at 3.8 (reference range 2.6 to 18.5), on the lower side of normal. - Hematocrit stable/downtrending, under goal of 45. He is s/p phlebotomy and 1x hydroxyurea at [facility] on 09/30. - Continue hydroxyurea- 2g QD - BCR/ABL negative Neck Pain - Not tender to touch - Probably muscular due to bed positioning - Discussed with NSGY re: psuedomeningocele - Flexeril increased to 10mg, added tramadol PRN for pain ID - WBC downtrending - Will monitor at this time, cultures in progress - Continue zosyn Diet - Puree/ honey PT/OT - PT currently recommending intensive post acute inpatient therapy Discharge Physical Examination: NEURO: Mental status: Awake. Oriented x 3 Language: Follows commands. Repetition, naming, comprehension intact. Slurred speech. Cranial nerves: PERRL, 3mm bilaterally. Left gaze nystagmus. Face appears symmetric. Motor: 4/5 strength overall, appears to be improving Dysmetria in LUE, improving Sensation: Intact to light touch. Gait: Deferred Stroke Work-up: Brain wo contrast CT 10/01/2017: 1. Surgical changes of decompressive suboccipital left craniectomy with postsurgical changes also affecting the territory of left cerebellar stroke which showed hemorrhagic transformation. 2. Dilated ventricles with possible early non-communicating hydrocephalus Brain wo contrast CT 10/02/2017: Interval placement of right frontal EVD without signal change in ventricular size. Evolving edema and hemorrhage in the cerebellum, with continued ascending cerebellar herniation. Brain wo contrast CT 10/06/2017: 1. Interval mild expansion of the fourth ventricle since the prior exam. Evolving hematoma and parenchymal hypodensities in the left cerebellar hemisphere. 2. Extra-axial fluid is increased in size in the suboccipital craniectomy bed compatible with postoperative fluid/pseudomeningocele. Brain wo contrast CT 10/07/2017: Evolving left cerebellar infarct with hemorrhagic changes. Slightly decreased compression of the 4th ventricle. Slight increase in size of pseudomeningocele extending through the suboccipital craniectomy defect. Interval removal of right frontal approach ventricular catheter without enlargement the lateral and 3rd ventricles. Stroke Brain CT 10/01/2017: Extensive edematous changes throughout the left cerebellar hemisphere with hemorrhagic changes and persistent ascending transtentorial herniation causing slight progression of hydrocephalus. CTA Head 10/01/2017: 1. Interval partial recanalization of the left V1 proximal vertebral artery as compared to the outside CTA dated 09/26/2017. 2. Focal thrombus within the lumen of the left vertebral artery at C3. 3. Poor PICA visualization, likely a sequela of mass effect from the evolving left PICA infarct. 4. Hypoplastic V3 and V4 segments of the left vertebral artery. 5. Unchanged ventriculomegaly. Chest wo contrast CT 10/07/2017: 1. Patchy bilateral consolidative and groundglass changes seen in both lower lobes associated with small amount of tracheobronchial secretions which may represent sequela to aspiration. Associated infection or atelectasis cannot be excluded. 2. Low-density lesions seen in both kidneys which are not well evaluated in the current study. Correlation with dedicated CT or MR abdomen with contrast is recommended for further evaluation. 3. Mild mitral annular calcifications associated with dilated left atrium. 4. Mild calcification seen along the left anterior descending and LCx coronary arteries. 5. Few sclerotic foci are seen in the ribs bilaterally. Although they may represent bone islands, given the patient's age and gender, correlation with prostate- specific antigen is recommended. TTE: 1) The left ventricle is normal in size and systolic function. Mild concentric left ventricular hypertrophy is observed. The LV ejection fraction is estimated at 60%-65%. Grade 1 diastolic dysfunction noted. 2) Right ventricular chamber size and systolic function are within normal limits. 3) Left atrium is mildly dilated. The LOIDA is 35 ml/m2. 4) No evidence of shunt across interatrial septum at rest or during Valsalva maneuver, by saline contrast study. 5) There is mitral annular calcification with mild regurgitation. 6) Right ventricular systolic pressure is estimated to be normal at 25 mmHg. 7) Aortic root is normal for body surface area. 8) There is no pericardial effusion seen. 9) No prior study is currently available for comparison. EEG: This is an abnormal routine electroencephalogram due to mild diffuse slowing of the background rhythm consistent with a mild encephalopathy. No epileptiform activity is seen, and no clinical or electrographic seizures are recorded. Etiology of Stroke: large vessel athero and hypercoagulable state from polycythemia vera (new) Discharge Medications: see R Discharge: Rehab Follow up: - [facility] first available. Clinic #[phone]. Out of network. see PCP for [facility] stroke referral. - [facility] Hematology, Dr. Saldivar. monitor CBC daily, goal hematocrit <45. [phone] [facility] clinic admin. She will call with a f/u heme appointment. - Neurosurgery [phone] in 2 weeks. (ok to remove sutures in 14 days 10/14/17) - PCP in 1-2 weeks for post hospitalization care Discharge Instructions/Recommendations: - Continue ASA 81 mg daily - Continue Lipitor 80 mg daily. LDL goal <70 - Continue lisinopril 20 mg BID and norvasc 10 mg daily for BP control. SBP goal <150/90. - Take your BP 2-3 times per day and record in a journal. Take this journal with you to your follow-up appointment. - Continue hydroxyurea 2 gm QPM for polycythemia vera. monitor hematocrit levels, goal <45. - The patient/ family received stroke education regarding signs and symptoms of stroke. They were instructed to call 911 if similar symptoms occurred again. The list of their medications on discharged was reviewed with the patient and all questions were answered. - Warfarin teaching was provided. - Smoking cessation counseling was provided the patient - Continue dysphagia puree/ honey thickened liquid diet - Continue PT/OT/ST in rehab please note all medication refills must be obtained from PCP or stroke clinic I spent 40 minutes on this discharge which included, discharge summary, medication reconciliation, writing prescriptions, and discussing discharge instructions with patient. [id number] Extracted from: Title: Clinical Document Author: Chel Paula DO Date: 10/06/17 Neurorehabilitation Consult Requesting Physician: Dr. Khalil Consulting Physician: Dr. Paula Reason: Evaluate for acute inpatient rehabilitation program History obtained from patient and patient's , and chart review Chief Complaint: dizziness "everything was spinning" 67 yo M p/w acute onset diminished appetite, vomiting at 8 am, later in day with dizziness, fell twice, no loc or acute injuries, son called 911, admitted to [facility], dx L cerbellar infarct, L vert occlusion, treated with hep gtt. Course c/b hydrocephalus, transferred to [facility] s/p suboccipital craniectomy, currently with EVD. Hematology is following for thrombocytosis that may be contributing factor to stroke. Patient able to tolerate PT this morning, npo per ST. is supportive and at bedside. ROS: denies fever/chills/garcia/cp/sob/n/v/d/new numbness or new weakness PMHX: htn PSHX: hernia ALLERGIES: NKDA CURRENT MEDS: Scheduled Meds (11): 10/05/17 10:19 amLODIPine 10 mg PO Daily 10/03/17 9:00 aspirin (aspirin 325 mg tablet) 325 mg PO Daily 10/01/17 21:00 atorvastatin 80 mg PO Bedtime 10/04/17 13:00 cefTRIAXone 2 gm IVP [id number] 10/01/17 9:00 docusate 100 mg PO Q12H 10/02/17 17:00 guar gum (guar gum oral powder (NutriSource)) 4 gm PO BID 10/02/17 16:00 heparin 5,000 unit SUB-Q Q8H 10/06/17 9:00 lactobacillus rhamnosus GG 1 cap DHT Daily 10/04/17 9:00 lisinopril 20 mg PO Q12H 10/01/17 9:00 sodium chloride (Saline Flush 0.9%) 10 ml IVP Q12H 10/06/17 11:00 sodium chloride (Sodium Chloride 3% inhalation solution) 3 mL NEB RQ4H Unscheduled Meds (1): 10/01/17 16:03 pneumococcal 13-valent vaccine 0.5 mL IM ONCALL PRN Meds (24): 10/01/17 0:04 acetaminophen 650 mg PO Q4H 10/06/17 7:05 albuterol-ipratropium (DuoNeb inhalation solution) 3 ml NEB Q4H 10/01/17 0:04 bisacodyl 10 mg VT Daily 10/01/17 0:08 calcium carbonate (calcium carbonate 500 mg (200 mg elemental calcium) oral tablet) 500 mg PO PRN 10/01/17 0:08 calcium carbonate (calcium carbonate 500 mg (200 mg elemental calcium) oral tablet) 1,000 mg PO PRN 10/01/17 0:08 calcium gluconate + Sodium Chloride 0.9% IV 50 mL 1 gm IVPB PRN 120 ml/hr 10/01/17 14:43 hydrALAZINE 10 mg IVP Q2H 10/01/17 14:43 labetalol 10 mg IVP Q1H 10/01/17 0:08 magnesium oxide 800 mg PO PRN 10/01/17 0:08 magnesium sulfate 2 gm IVPB PRN 25 ml/hr 10/01/17 0:19 ondansetron (Zofran) 4 mg IVP Q8H 10/04/17 11:30 ondansetron (Zofran) 4 mg IVP Q8H 10/01/17 0:08 potassium chloride 10 mEq IVPB PRN 50 ml/hr 10/01/17 0:08 potassium chloride 20 mEq PO PRN 10/01/17 0:08 potassium chloride 20 mEq NJ PRN 10/01/17 0:08 potassium phosphate + Sodium Chloride 0.9% IV 250 mL 15 mmol IVPB PRN 63.75 ml/hr 10/01/17 0:08 potassium phosphate + Sodium Chloride 0.9% IV 250 mL 30 mmol IVPB PRN 65 ml/hr 10/01/17 0:08 potassium phosphate + Sodium Chloride 0.9% IV 250 mL 45 mmol IVPB PRN 66.25 ml/hr 10/01/17 0:08 potassium phosphate-sodium phosphate (potassium phosphate-sodium phosphate 250 mg-280 mg-160 mg oral powder for reconstitution) 2 pkt PO PRN 10/01/17 0:04 sodium chloride (Saline Flush 0.9%) 10 ml IVP PRN 10/01/17 0:08 sodium phosphate + Sodium Chloride 0.9% IV 250 mL 15 mmol IVPB PRN 63.75 ml/hr 10/01/17 0:08 sodium phosphate + Sodium Chloride 0.9% IV 250 mL 30 mmol IVPB PRN 65 ml/hr 10/01/17 0:08 sodium phosphate + Sodium Chloride 0.9% IV 250 mL 45 mmol IVPB PRN 66.25 ml/hr 10/05/17 10:18 tramadol (tramadol 50 mg oral tablet) 50 mg PO Q6H One Time Meds (1): 10/06/17 8:53 (Completed) loperamide (Imodium A-D) 2 mg PO ONCE Continuous Infusions (1): 10/02/17 9:45 Sodium Chloride 0.9% IV 1,000 mL (normal saline 0.9% IV 1,000 mL) 1,000 mL 30 ml/hr FAMILY HX: father, leukemia SOCIAL HX: 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 pleasant HEENT: + EVD, no carotid bruits, no lymphadenopathy, + dobhoff tube LUNGS: cta b/l, no rales, no ronchi CV: rrr +s1 +s2, no murmurs ABD: +bs, nt.nd, no organoegaly EXT: no edema, negative florence's sign , b/l hand restraints : no ortiz NEURO: oriented to person, place, situation, follows commands eomi, visual sahu intact, + upward gaze nystagmus L dysmetria able to lift L arm and L leg antigravity 4/5 delt/hf R: 5/5 throughout Leans toward left while sitting Therapy 10/06 OT:Current Functional Status Bed Mobility : MAX A Transfers : MAX A Feeding : Total A (Comment: did not pass swallow test- still NPO on dobhoff [Naye Barriga OT - 10/06/2017 16:28 CDT] ) Grooming : MAX A Upper Body Dressing : MAX A Lower Body Dressing : Total A Toileting : Total A 10/04 PT:required cues to attend to L side while upright. The pt would continue to benefit from skilled PT in the acute setting and beyond to progress mobility as pt can tolerate. Labs 10/06 wbc 20 platelet 821 10/01 UDS (-) Imaging 10/06 HCT: L cerebellar hematoma, suboccipital craniectomy. interval expansion of 4th ventricle ASSESSMENT: 67 yo M with L VA occlusion, L cerebellar infarct, and hydrocephalus s/p subocciptial craniectomy, and EVD. Functional deficits include nystagmus, dysphagia, L dysmetria, L hemiparesis. RECOMMEND: Neurorehab PT/OT. fall precautions. ST. npo, tubefeeds through dobhoff tube. needs swallow test - aspiration precautions Medical L cerebellar hematoma s/p suboccipital craniectomy: still with EVD, monitor neuro status. etiology large vessel athero vs due to polycythemia vera. continue aspirin for secondary stroke prevention HTN: bp controlled Thrombocytosis: hematology following, dx polycythemia vera Elevated wbc count: respiratory culture + klebsiella, continue antibiotics : check pvrs every 4-6 hours, straight cath if >250cc. Prophylaxis DVT Proph: SQH GI Proph: holding stool softeners due to loose stools, C diff (-) Skin: frequent position changes every 4-6 hours to prevent ulcers Disposition Based on current functional status, pt will benefit from acute inpatient rehabilitation program when medically ready - family prefers acute rehab near home in [place] if possible. >80 minutes was spent with patient and , with more than 50% of time spent counseling regarding acute comprehensive rehabiltiation program including 24 hour nursing, daily physician rounding, physical, occupational, and speech therapy and neuropsychology. appreciate consult Extracted from: Title: Stroke Admission Note Author: Allen Banda MD Date: 10/01/17 Stroke History & Physical Patient: Simona Nolan Chief Complaint: Lethargy, dizziness, N/V History of Present Illness: Mr. Nolan is a 67yo male with PMH of HTN, who was admitted to [facility] in 09/25 due to acute onset of headache, dizziness, imbalance, falls, and N/V. Initial workup in the ED revealed a left inferior cerebellar infarct. Vessel imaging revealed left vert occlusion from V2 to V4 segment, right vert stenosis. He was started on Heparing gtt due to this finding. During his hospital stay, he was found to have elevated Hgb levels up to 23, and was diagnosed with polycythemia vera. He continue to have persistant symptoms throughout his hospital stay. On 09/30, patient became more lethargic, and CTH and MRI revealed progression of his left cerebellar stroke, with development of hydrocephalus. He was started on Dexa, received hypertonic boluses and mannitol. He was transferred to [facility] for HLOC and NSGY evaluation, for possible craniectomy. On arrival, patient was drowsy but arousable, following commands with antigravity in all extremities. CTH revealed edema and hemorrhage in area of stroke, with posterior fossa mass effect. NSGY was consulted and recommended close monitoring. Review of Systems: GEN: no fever, chills, weight loss, fatigue CARDIO: no chest pain, palpitations PULM: no shortness of breath, cough GI: no nausea, vomiting, diarrhea, no abd pain : no frequency, dysuria, hematuria NEURO: see HPI SKIN: no rash or lesion MSK: no pain, swelling, redness, heat in muscles, no limited ROM, weakness, or atrophy, no cramps Past Medical History: HTN, newly diagnosed polycythemia vera Past Surgical History: unknown Family Medical History: non contributory Social History: unknown Medications: Scheduled Meds (6): 10/01/17 21:00 atorvastatin 80 mg PO Bedtime 10/01/17 4:00 chlorhexidine topical (chlorhexidine topical 0.12% liquid) 15 mL Swab Mouth Q4H 10/01/17 9:00 docusate 100 mg PO Q12H 10/01/17 9:00 famotidine 20 mg IVP Q12H 10/01/17 6:00 ocular lubricant 1 appl BOTH EYES Q6H 10/01/17 9:00 sodium chloride (Saline Flush 0.9%) 10 ml IVP Q12H One Time Meds (3): 10/01/17 0:08 (Completed) Sodium Chloride 0.9% IV (NS (Bolus) IV) 1,000 mL IV ONCE 1,000 ml/hr 10/01/17 3:04 (Completed) mannitol 50 gm IVPB ONCE 250 ml/hr 10/01/17 1:49 (Completed) sodium chloride (sodium chloride 14.6% intravenous solution) 100 mEq IV Central ONCE 80 ml/hr Continuous Infusions (2): 10/01/17 3:04 Sodium Chloride 3% IV 500 mL (Sodium Chloride 3% (Hypertonic) IV 500 mL) 500 mL 100 ml/hr 10/01/17 0:15 propofol 1,000 mg (propofol 10 mg/mL (Titrate.) IV 1,000 mg) 1,000 mg Titrate Allergies: NKDA Physical Exam: Vitals: VitalsTmp(F)Tmp(C)[id number] 10/01 04:15 97 50%--- 10/01 02:02 [id number]------ 10/01 02:00 [id number]------ 10/01 01:00 [id number]------ 10/01 00:05 100 50%--- 24 Hr Tmax: 98.6F (37.00c) at 10/01 00:0024 Hr Tmin: 98.6F (37.00c) at 10/01 00:00 36 Hr Tmax: 98.6F (37.00c) at 10/01 00:0036 Hr Tmin: 98.6F (37.00c) at 10/01 00:00 GENERAL: intubated, sedated, lethargic but arousable HEENT: - Normocephalic and atraumatic, dry mm, no LN++, no Thyromegally LUNGS - Clear to auscultation bilaterally with no wheezes CV - S1S2 RRR, no m/r/g, equal pulses bilaterally. ABDOMEN - Soft, nontender, nondistended with normoactive BS NEURO: Mental Status: lethargic but arousable Language: intubated, follows simple commands. Cranial Nerves: PERRL 3mm/ sluggish. EOMI, blinks to threat, no facial asymmetry. Motor: antigravity all extremities Tone: is normal and bulk is normal Sensation- Intact to pain bilaterally Coordination: unable to test Gait- deferred Pre-Morbid MRS 0-Completely asymptomatic NIH Stroke Scale (NIHSS) 2 1a. Level of Consciousness; 0-alert 1-drowsy 2-stupor 3-coma 2 1b. LOC Questions month and age; 0-both 1-one 2-neither 0 1c. LOC Commands open/close eyes, enterprise infrastructure architect/release non-paretic hand; 0-both 1-one 2-neither 0 2. Best Gaze; 0-nl 1-partial 2-forced gaze 0 3. Visual Sahu; 0-No visual loss. 1-Partial hemianopia 2-Complete 3-Bilateral 0 4. Facial Palsy; 0-none 1-minor 2-partial 3-complete 0 5. Motor - R arm; 0-No drift 1-Drift 2-Some antigravity 3-No antigravity 4-No movement 0 6. Motor - R leg; 0-No drift 1-Drift 2-Some antigravity 3-No antigravity 4-No movement 0 7. Motor - L arm; 0-No drift 1-Drift 2-Some antigravity 3-No antigravity 4-No movement 0 8. Motor - L leg; 0-No drift 1-Drift 2-Some antigravity 3-No antigravity 4-No movement 0 9. Limb Ataxia; 0 absent 1 - 1limb 2 - 2 limbs 0 10. Sensory; 0-nl 1-partial loss 2-dense loss 0 11. Best Language; 0-nl 1-mild/mod 2-severe 3-mute x 12. Dysarthria; 0-nl 1-mild/mod 2-severe x-untestable 0 13. Extinction and Inattention (formerly Neglect); 0-none 1-partial 2-complete 4 Total Labs: WBC H 23.7(OCT 01) Hgb H 18.7(OCT 01) Hct H 54.3(OCT 01) Plt H 874(OCT 01) Na 138(OCT 01) K 4.2(OCT 01) CO2 L 20(OCT 01) Cl 107(OCT 01) Cr H 1.41(OCT 01) BUN H 28(OCT 01) Glucose Random H 137(OCT 01) Mg 2.0(OCT 01) Phos 3.7(OCT 01) Ca L 7.5(OCT 01) PT 13.8(OCT 01) INR 1.06(OCT 01) PTT 31.0(OCT 01) Troponin C 1.20(OCT 01) EKG: Imaging: Brain Stroke wo contrast CT 10/01/2017 01:38 Impression: Diffusely edematous left cerebellar hemisphere with hemorrhage and severe posterior fossa mass effect. Early noncommunicating hydrocephalus. Per OSH reports: CTA: left vert occlusion from V2-V4 segment, right vert stenosis, atherosclerosis in right ICA bifurcation. MRI: left inferior and superior cerebellar infarct. Assessment: Mr. Nolan is a 67yo male with PMH of HTN and recently diagnosed Polycythemia vera, who was transferred from OSH due to worsening mental status after being diagnosed with left cerebellar infarct, likely due to left vert occlusion seen in vessel imaging. Patient was started on heparing gtt due to right vert stenosis. He had worsening of his exam on 09/30, and was found to have progression of stroke. He was transferred to [facility] for HLOC and NSGY evaluation. He was started prior to transfer on hypertonic saline and mannitol. Etiology is likely large vessel athero. On arrival, patient was lethargic but arousable and following commands. NSGY recommended close monitoring with repeat CTH in 4h. Will start medical therapy with hypertonic saline. Heparin gtt was held on admission, and will continue to hold due to evidence of hemorrhagic transformation in CTH. 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 polycythemia vera Continue Evaluation: -Admit to NTICU -Hold ASA and heparin gtt -Continue Statin -Blood pressure control, goal of SYS <180 -MRI/ECHO/A1C/Lipid panel performed in OSH. -Hyperglycemia management per SSI to maintain glucose 140-180mg/dL. -PT/OT/ST therapies and recommendations when able RESOURCE SPECIALIST Cerebral edema Compression of brain -Hyperosmolar therapy. S/P hypertonic saline and mannitol in OSH. Restarted in NTICU. -NSGY consult, recommend close monitoring and repeat CTH at 6am. -Close neuro monitoring - Family was informed about possible need for surgery. Dysarthria Dysphagia following cerebral infarction -NPO until cleared by speech -ST -Advance diet as tolerated -May need PEG RESP Acute Respiratory Failure -vent management per ICU -wean when able CV Essential (primary) hypertension -Aggressive BP control, goal SBP < 180 -Titrate oral agents Hyperlipidemia, unspecified - Statin for goal LDL < 70 HEME Polycythemia vera -Newly diagnosed in OSH -Ranges in 19-23 -TAYLOR gene sent in OSH. - Patient was given Hydroxyurea prior to transfer. - Recommend Hematology consult. Coagulopathy secondary to anticoagulation -PTT non therapeutic on arrival. - Heparin discontinued due to hemorrhagic transformation. ENDO -SSI -goal HgbA1c < 7 GI/ Acute Kidney Failure -Gentle hydration -avoid nephrotoxic agents Fluid/Electrolyte Disorders -Replete -Repeat labs -Trend ID Possible Aspiration PNA -CXR -NPO -Monitor Leukocytosis -Laird cultures pending -WBC 23, possibly due to recent Dexamethasone treatment in OSH. - Patient afebrile, will follow culture results and monitor VS Nutrition -diet consult Prophylaxis DVT: holding in setting of hemorrhagic transformation GI: famotidine Bowel: docusate Diet: NPO until cleared by speech Code Status: Full Code THE FOLLOWING WERE PRESENT ON ADMISSION: RESOURCE SPECIALIST - Acute Ischemic Stroke, hemorrhagic transformation, Cerebral Herniation, Cerebral Edema, Obstructive non communicating Hydrocephalus, lethargy Respiratory - Ventilator dependent, Respiratory failure Cardiovascular - HTN, elevated troponin Infectious - leukocytosis GI - n/a Renal - SUZANNE Heme- polycythemia vera Cancer - n/a Trauma - n/a Palliative care n/a ACUTE STROKE BENCHMARKS: TRANSFER FROM OSH TIME PT LAST SEEN NORMAL 09/25 EMS PRE-NOTIFICATION CODE STROKE ACTIVATION ARRIVAL TIME TIME OF STROKE TEAM EVALUATION CT HEAD READ TIME IV tPA bolus (time and dose) IV tPA infusion (time and dose) If not a candidate for IV tPA, why? Delays in this process: (None) Case discussed wit Dr. Mcgill, fellow precision crop manager. Allen Banda PGY-2 [place] Neurology STROKE NEUROLOGY ATTENDING I have seen and examined the patient. Furthermore, I have discussed the case with and reviewed the resident's note and agree with the history, exam, assessment and plan. See note below for additions and/or exceptions and my findings. I have personally viewed the patient's radiographic studies, laboratory tests, and medications. The patient has a left cerebellar stroke with compression on the branistem and is undergoing suboccipital decompression by neurosurgery.
[2018-01-27 15:55] VITALS: BP 132/89
== END | disposition home or self-care (01) ==
LOC: OR 10:00
PROVIDERS: ATTEND Internal Medicine Gastroenterology
DX: Z12.11 Encounter for screening for malignant neoplasm of colon (principal); D12.0 Benign neoplasm of cecum; D12.4 Benign neoplasm of descending colon; K92.1 Melena; K57.30 Diverticulosis of large intestine without perforation or abscess without bleeding; R13.10 Dysphagia, unspecified; K64.1 Second degree hemorrhoids; N40.0 Benign prostatic hyperplasia without lower urinary tract symptoms; I11.0 Hypertensive heart disease with heart failure; I50.9 Heart failure, unspecified; I69.30 Unspecified sequelae of cerebral infarction; Z01.810 Encounter for preprocedural cardiovascular examination; Z01.812 Encounter for preprocedural laboratory examination
CPT/HCPCS: 36415; 45384; 45385; 85025; 93005; J2250; 45378